=== PATIENT | male | born 1935 | race Caucasian/White ===

== ENCOUNTER 2017-12-03 07:57 | Day surgery (SDC) | payer OTHER ==
--- NOTE | 2017-11-27 12:18 | GHP ---
DATE OF ADMISSION: 12/03/2017 HISTORY OF PRESENT ILLNESS: The patient is an 82-year-old male with chronic kidney disease, who anti cipates needs for dialysis soon. He is followed by [facility]. Initially, he came to us opt ing for a peritoneal dialysis catheter. However, upon further discussion with his supervisor burling and joining, they have both decided to pursue hemodialysis, and so he is here to have an arteriovenous fistula created . Risks and options have been discussed, including, but not limited to, bleeding, infection, nerve i njury, clotting, failure to mature, need for revision, need for alternate access, steal syndrome and other problems, and he requests to proceed. PAST MEDICAL HISTORY: Includes chronic kidney disease secondary to hypertension, hypertension, gout, coronary artery disease, status post coronary stenting x3, upper GI bleed from gastric polyps, ulnar neuropathy, hyperlipidemia, history of prostate cancer, status post radiation proton therapy, herpes zoster, hemorrhoid problems with bleeding while on Plavix. Also, hyperparathyroidism, osteoporosis, and GERD. PAST SURGICAL HISTORY: Coronary stents, parathyroidectomy. MEDICATIONS: Include atenolol, Lipitor, Niaspan, aspirin, Flonase, vitamin C, fish oil, vitamin E, v itamin B12, Flomax, Cialis, CoQ10, calcium, ferrous sulfate, vitamin D, allopurinol, Lasix, Zemplar, Norvasc, atenolol, sodium bicarbonate, Tums. ALLERGIES: No known drug allergies. SOCIAL HISTORY: Denies alcohol, drug or tobacco use. REVIEW OF SYSTEMS: Includes some shortness of breath, swelling of ankles, intermittent diarrhea and nausea. PHYSICAL EXAMINATION: GENERAL: Exam reveals an 82-year-old male, alert and oriented x3, in no acute distress. HEENT: Normocephalic, atraumatic. CHEST: Clear to auscultation bilaterally. CARDIAC: Regular rate and rhythm. ABDOMEN: Soft, nontender. No rebound or guarding. EXTREMITIES: Warm an d dry, with palpable radial pulses. IMPRESSION: This is an 82-year-old male with renal failure, soon to be in need for dialysis. PLAN: Plan will be to proceed with a left upper extremity arteriovenous fistula creation. Again, shital colmenares initially opted for a PD cath, but upon further discussion with his supervisor burling and joining, has chosen he modialysis. Per my discussion with the patient, he has also discussed this with Dr. Degroot and now re quests to proceed. /[id number]/MODL
[2017-12-03] MEDS ORDERED: ceFAZolin 2 GM/DEXTROSE 100 ML IV ONE (08:05)
[2017-12-03] MEDS ORDERED: LR 1,000 ML IV ONE (08:06)
[2017-12-03] MEDS ORDERED: LIDOCAINE 1% 2 ML INJ ID PRN (08:06)
[2017-12-03] MEDS ORDERED: THROMBIN (BOVINE) 5,000 UNIT VIAL TP ONE (09:14)
[2017-12-03] MEDS ORDERED: THROMBIN (BOVINE) 20,000 UNIT SPRAY TP ONE (09:14)
[2017-12-03] MEDS ORDERED: PROTAMINE SULFATE 50 MG/5 ML VIAL IVP ONE ×2 (09:15)
[2017-12-03] MEDS ORDERED: BUPIVACAINE 0.5% 30 ML SDV ONE (09:15)
[2017-12-03] MEDS ORDERED: PROPOFOL/EMULSION 500 MG/50 ML BOTTLE IV ONE (09:36)
[2017-12-03] MEDS ORDERED: ONDANSETRON 4 MG/2 ML VIAL IVP PRN (09:37)
[2017-12-03] MEDS ORDERED: HYDROCODONE/APAP 5/325 TAB PO PRN (09:37)
[2017-12-03] MEDS ORDERED: fentaNYL 100 MCG/2 ML INJ IVP PRN (09:37)
[2017-12-03] MEDS ORDERED: NS 500 ML IV PRN (09:37)
[2017-12-03] MEDS ORDERED: ACETAMINOPHEN 500 MG TAB PO PRN (09:37)
[2017-12-03] MEDS ORDERED: LABETALOL HCL 5 MG/ML 20 ML MDV IVP PRN (09:37)
[2017-12-03] MEDS ORDERED: oxyCODONE IR 5 MG TAB PO PRN (09:37)
[2017-12-03] MEDS ORDERED: NALOXONE HCL 0.4 MG/ML INJ IVP PRN (09:37)
--- NOTE | 2017-12-03 09:37 | PDANEPAE ---
ANE History of Present Illness here for L AV fistula ANE Past Medical History - Cardiovascular History Hx Hypertension: Yes Hx Arrhythmias: No Hx Chest Pain: No Hx Coronary Artery / Peripheral Vascular Disease: Yes Hx CHF / Valvular Disease: No Hx Palpitations: No Cardiovascular History Comment: STENTS X3 LAST 2006 - Pulmonary History Hx COPD: No Hx Asthma/Reactive Airway Disease: No Hx Recent Upper Respiratory Infection: No Hx Oxygen in Use at Home: No Hx Sleep Apnea: No Sleep Apnea Screening Result - Last Documented: Positive - Neurologic History Hx Cerebrovascular Accident: No Hx Seizures: No Hx Dementia: No - Endocrine History Hx Diabetes: No - Renal History Hx Renal Disorders: Yes Renal History Comment: ESRD. 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 USE OF RX. PREV GI BLEED. HX OF POLYPS - Other Health History Other Health History: ITCHING. GOUT. ANEMIA. BRUISES EASILY. WEARS EYE GLASSES. OSTEOPOROSIS - Chronic Pain History Chronic Pain: Yes (JUNAID HIPS) - Surgical History Prior Surgeries: FLEX SIGMOID/HEMORRHOID BONDING. PARATHYROID. TONSILLECTOMY ANE Review of Systems Review of systems is: negative Review of Systems: - Exercise capacity Exercise capacity: >=4 METS METS (RN): 4 METS ANE Patient History - Allergies Allergies/Adverse Reactions: No Known Allergies Allergy (Verified 12/03/17 08:47) - Home Medications Home medications: home medication list seen and reviewed Home Medications: Allopurinol [Allopurinol 100 MG (*)] 100 mg PO DAILY 09/21/15 [Last Taken ] Aspirin [Aspirin 81mg (*)] 81 mg PO DAILY20 09/21/15 [Last Taken 11/30/17] Atorvastatin Calcium [Lipitor 20 mg (*)] 20 mg PO DAILY20 09/21/15 [Last Taken 12/02/17] Docusate Sodium [Colace 100 MG (*)] 100 mg PO PRN 09/21/15 [Last Taken 11/19/17] Herbals/Supplements -Info Only 1 ea PO DAILY 09/21/15 [Last Taken 11/29/17] Multivitamins [Multivitamin (*)] 1 each PO DAILY 09/21/15 [Last Taken 11/29/17] Niacin ER [Niaspan 500 mg (*)] 500 mg PO DAILY20 09/21/15 [Last Taken 12/02/17] Paricalcitol [Zemplar] 4 mcg PO ONCE 09/21/15 [Last Taken 12/02/17] amLODIPine BESYLATE [Norvasc 10 mg (*)] 10 mg PO HS 09/21/15 [Last Taken ] Furosemide DAILY 11/29/17 [Last Taken 12/02/17] Iron DAILY 11/29/17 [Last Taken 12/03/17] Sodium Bicarbonate DAILY 11/29/17 [Last Taken 12/03/17] Tamsulosin HCl [Flomax 0.4 MG (*)] 0.4 mg PO BID 11/29/17 [Last Taken 12/03/17] - NPO status NPO Status: no food or drink >8 hours NPO Since - Liquids (Date): 12/03/17 NPO Since - Liquids (Time): 05:45 NPO Since - Solids (Date): 12/02/17 NPO Since - Solids (Time): 20:00 - Smoking Hx Smoking Status: Never smoked - Family Anes Hx Family Hx Anesthesia Complications: SON HAD DIFFICULTY CARDIAC ARREST AT AGE 17 ANE Labs/Vital Signs - Labs Result Diagrams: 12/03/17 08:05 - Vital Signs Vital Signs: reviewed preoperatively; see RN documention for details Blood Pressure: 127/72 Heart Rate: 60 Respiratory Rate: 16 O2 Sat (%): 96 Height: 189.23 cm Weight: 96.162 kg ANE Physical Exam - Airway Neck exam: FROM Mallampati Score: Class 2 Mouth exam: normal dental/mouth exam - Pulmonary Pulmonary: no respiratory distress - Cardiovascular Cardiovascular: regular rate and rhythym - ASA Status ASA Status: III ANE Anesthesia Plan Anesthesia Plan: GA w LMA
[2017-12-03] MEDS ORDERED: fentaNYL 100 MCG/2 ML INJ ONE ×2 (09:38→10:08)
[2017-12-03] MEDS ORDERED: PHENYLEPHRINE HCL 100 MCG/ML SYR ONE (09:46)
[2017-12-03] MEDS ORDERED: ONDANSETRON 4 MG/2 ML VIAL ONE (10:05)
[2017-12-03] MEDS ORDERED: DEXAMETHASONE 4 MG/ML VIAL ONE (10:05)
--- NOTE | 2017-12-03 11:14 | POSTOPPROG ---
Post Op Note Date of Operation: 12/03/17 Surgeon: Alexandro Degroot Button Sewer Hand: Megan Mccord Anesthesiologist: Saul Omalley Anesthesia: GET(General Endotracheal) Pre-op Diagnosis: CRF Post-op Diagnosis: same Procedure: LUE radiocephalic AVF c ligation of collateral vein Findings: good thrill Inf/Abcess present in the surg proc area at time of surgery?: No EBL: Minimal Complications: none
[2017-12-03] MEDS ORDERED: HYDROCODONE/APAP 5/325 TAB ONE (12:07)
[2017-12-03 12:55] VITALS: BP 127/71
--- NOTE | 2017-12-03 16:08 | POSTANESTH ---
Post Anesthetic Evaluation Cardiovascular Status: Normal, Stable Respiratory Status: Normal, Stable Level of Consciousness/Mental Status: Can Participate in Eval Pain Control: Adequate, Prn Tx Ordered Nausea/Vomiting Control: Adequate, Prn Tx Ordered Complications Possibly Related to Anesthesia: None Noted
--- NOTE | 2017-12-30 05:52 | GOP ---
DATE OF OPERATION: 12/03/2017 SURGEON: Alexandro Degroot MD ANAESTHETIC TECHNICIAN: Megan Mccord PA-C ANESTHESIOLOGIST: Saul Omalley MD PREOPERATIVE DIAGNOSIS: Chronic renal failure. POSTOPERATIVE DIAGNOSIS: Chronic renal failure. PROCEDURE PERFORMED: 1. Left upper extremity ultrasound vein mapping. 2. Left upper extremity radiocephalic arteriovenous fistula creation with ligation of collateral vei ns. FINDINGS: The patient was found to have a good thrill and bruit in the AV fistula. DESCRIPTION OF PROCEDURE: The patient was taken to the operating room where he received a satisfacto ry general endotracheal anesthesia by Dr. Omalley. He was placed in the supine position with the left arm outstretched on an arm board, prepped and draped in the usual sterile fashion. Ultrasound was u sed to evaluate the veins, and it was felt that it was much safer and larger in the upper arm. A cur vilinear incision was made in the antecubital space. Dissection carried down through the subcutaneou s tissue, and the brachial artery was dissected free underneath the aponeurosis and encircled with ve ssel loops. The patient was systemically heparinized. The cephalic vein was mobilized in the antecu bital space and then dissected down into the upper forearm where it was ligated distally with 2-0 apryl k ties and it was transposed over to the brachial artery where an end-to-side anastomosis was made wi th 6-0 Prolene running suture, creating an 8 mm anastomosis. Flow was first established through the AV fistula then back down the hand. He maintained a good fistula flow and a good radial pulse. The wounds were then closed using 3-0 Vicryl for the subcutaneous tissue and 4-[address] itch for the skin. All layers were infiltrated with 0.5% Marcaine. The patient tolerated the proced ure well. There were no complications. Blood loss negligible. He was taken to the recovery room in good condition. /[id number]/MODL
== END 2017-12-03 12:57 | disposition home or self-care (01) ==
LOC: FSGY 07:57
PROVIDERS: ATTEND Surgery
PROC: 03180ZD Bypass Left Brachial Artery to Upper Arm Vein, Open Approach (ICD-10-PCS; principal; 2017-12-03 09:45)
DX: N18.6 End stage renal disease (principal); I12.0 Hypertensive chronic kidney disease with stage 5 chronic kidney disease or end stage renal disease; E78.5 Hyperlipidemia, unspecified; E21.3 Hyperparathyroidism, unspecified; M81.0 Age-related osteoporosis without current pathological fracture; K21.0 Gastro-esophageal reflux disease with esophagitis; Z85.46 Personal history of malignant neoplasm of prostate
CPT/HCPCS: J0690; J1100; J1644; J2370; J2405; J2704; J2720; J3010

== ENCOUNTER → 2018-01-27 | Outpatient (CLI) | payer OTHER | LOC: FIMAGING 09:42 | PROVIDERS: ATTEND Internal Medicine Nephrology | DX: I12.9 Hypertensive chronic kidney disease with stage 1 through stage 4 chronic kidney disease, or unspecified chronic kidney disease (principal); N18.4 Chronic kidney disease, stage 4 (severe); Z95.5 Presence of coronary angioplasty implant and graft | CPT/HCPCS: 86707-90; 87350-90; G0472 ==

== ENCOUNTER → 2018-03-12 | Day surgery (SDC) | payer OTHER ==
[~2018-03-12] MED LIST: IOPAMIDOL (ISOVUE-370) 150 ML BTL IV ONE
== END | disposition home or self-care (01) ==
LOC: FIMAGING 08:34
PROVIDERS: ATTEND Radiology Diagnostic Radiology
DX: T82.858A Stenosis of other vascular prosthetic devices, implants and grafts, initial encounter (principal); N18.6 End stage renal disease; I12.0 Hypertensive chronic kidney disease with stage 5 chronic kidney disease or end stage renal disease; Z99.2 Dependence on renal dialysis
CPT/HCPCS: 36902; 76937; C1769; C1894; C1725; J1644; Q9967

== ENCOUNTER 2018-03-14 07:52 | Inpatient (IN) | payer OTHER ==
--- NOTE | 2018-03-14 08:23 | EDPHY ---
H & P Time Seen by Provider: 03/14/18 08:18 HPI/ROS: CHIEF COMPLAINT: Abdominal pain HISTORY OF PRESENT ILLNESS: 83-year-old man who has Saturday and Saturday dialysis presents with abdominal pain since 3:30 a.m.. Says pain is 9/ 10, does not radiate, associated with some dry heaving but no diarrhea. No previous abdominal surgeries. It is located in the epigastric region and all above his umbilicus. 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 Denies chest pain or shortness of breath or diarrhea. No recent injury or trauma. No fever or chills. No urinary symptoms. REVIEW OF SYSTEMS: Eye: no change in vision ENT: no sore throat Cardiac: no chest pain or syncope Pulmonary: no cough or SOB Abdomen: HPI Musculoskeletal: no back pain Skin: no rash Neuro: no headache Constitutional: no fever : no urinary symptoms A comprehensive 10 point review of systems is otherwise negative aside from elements mentioned in the history of present illness. PAST MEDICAL HISTORY: Dialysis with some residual renal function still urinates , hypertension, coronary disease with 2 stents, hypercholesterolemia, prostate cancer Social history: Missed his dialysis yesterday because he was taking his to a neurosurgery appointment. General Appearance: Alert and conversant, cooperative. Moderately uncomfortable. Eyes: No scleral icterus. ENT, Mouth: Normal mucous membranes. Respiratory: Normal respiratory effort, breath sounds equal, lungs are clear to auscultation. Cardiovascular: Regular rate and rhythm. Gastrointestinal: Epigastric abdominal tenderness. No rebound or guarding. No pulsatile masses. Neurological: Alert, face symmetric, normal motor and sensory in extremities. Skin: Warm and dry, no rashes. Musculoskeletal: No peripheral edema. Psychiatric: Not agitated. Emergency Department course/MDM: CT abdomen and pelvis without IV contrast because he still has some renal function left. Discussed with the patient and consented Fentanyl 100 and Zofran 4. 908: negative abdomen pelvis CT per [place]. 914: Results discussed the patient and his family. Admission discussed and consented for further evaluation of severe abdominal pain. Discussed with Giselle Mayfield. Smoking Status: Never smoked Constitutional: Initial Vital Signs Temperature (C) 36.5 C 03/14/18 07:55 Heart Rate 80 03/14/18 07:55 Respiratory Rate 18 03/14/18 07:55 Blood Pressure 177/107 H 03/14/18 07:55 O2 Sat (%) 99 03/14/18 07:55 O2 Delivery Mode Room Air Allergies/Adverse Reactions: adhesive Allergy (Mild, Verified 03/07/18 11:28) Rash Home Medications: Medication Instructions Recorded Allopurinol [Allopurinol 100 MG 100 mg PO DAILY 09/21/15 (*)] Aspirin [Aspirin 81mg (*)] 81 mg PO HS 09/21/15 Atorvastatin Calcium [Lipitor 20 20 mg PO HS 09/21/15 mg (*)] Herbals/Supplements -Info Only 1 ea PO DAILY 09/21/15 Multivitamins [Multivitamin (*)] 1 each PO DAILY 09/21/15 Niacin ER [Niaspan 500 mg (*)] 500 mg PO HS 09/21/15 Paricalcitol [Zemplar] 4 mcg PO MOTH@09/21/15 Ferrous Sulfate [Ferrous Sulf 325 325 mg PO DAILY 11/29/17 MG (*)] Furosemide [Lasix 40 MG (*)] 40 mg PO DAILY16 11/29/17 Sodium Bicarbonate [Na Bicarb 650 1,300 mg PO DAILY 11/29/17 MG (RX)] Tamsulosin HCl [Flomax 0.4 MG (*)] 0.4 mg PO BID 11/29/17 Ascorbic Acid [Vitamin C 500 mg 500 mg PO DAILY 03/14/18 (*)] Calcium Carbonate [Tums 500MG (*)] 1,000 mg PO DAILY18 03/14/18 Calcium Carbonate [Tums 500MG (*)] 500 mg PO BID@,03/14/18 Cholecalciferol Vit D3 [Vitamin D3 1,000 units PO DAILY 03/14/18 (*)] Fluticasone Nasal [Flonase Nasal 1 sprays NASAL BID 03/14/18 [place] (RX)] Ondansetron Odt [Zofran Odt 4 mg 4 mg PO BID PRN 03/14/18 (*)] Sodium Bicarbonate [Na Bicarb 650 1,950 mg PO HS 03/14/18 MG (RX)] Vitamin B Complex [Vitamin B 1 each PO DAILY 03/14/18 Complex (OTC)] Medical Decision Making - Diagnostics EKG Interpretation: 12-lead EKG interpreted by me; official reading is in computer system. My interpretation is sinus rhythm rate 68, left axis, no acute ischemic changes, QT 461. Imaging Results: Imaging Impressions Abdomen/Pelvis CT 03/14/18 08:32 Impression: 1. Subtle pericholecystic stranding. Otherwise, no explanation for epigastric pain. 2. Fatty replaced pancreas. No evidence of acute pancreatitis. 3. No evidence of duodenal ulcer or perforation. 4. Constipation and diverticulosis of the descending sigmoid colon. Findings discussed with Emergency Department physician, Charito Ríos, on 2018 at 9:14 a.m. Attention: This CT examination is specifically designed to evaluate patients who are clinically suspected of having acute obstructive uropathy. This examination does not use radiographic contrast, and as such, provides only a limited evaluation of the abdomen, pelvis and retroperitoneum. If there is further clinical suspicion for pathological conditions other than obstructive uropathy, a complete CT evaluation of the abdomen and pelvis utilizing intravenous, oral, and rectal contrast should be considered. Abdomen Ultrasound 03/14/18 09:09 Impression: 1. Suboptimal assessment of the pancreas and midabdominal aorta secondary to overlying bowel gas. 2. Questionable mild anterior gallbladder wall thickening, with no evidence of cholelithiasis, pericholecystic fluid, or bile duct dilatation. If there is further clinical concern, a nuclear medicine hepatobiliary scan could be considered. 3. There are a couple of small benign right renal cortical cysts, with some mild right renal cortical thinning. 4. Mild hepatic steatosis. Findings were discussed with CHARITO RÍOS MD at 11:12, on 03/14/2018. Imaging: Discussed imaging studies w/ call center assistant Radiologist Differential Diagnosis: Differential considered including but not limited to gallstones, pancreatitis, intestinal perforation, aortic aneurysm, acute coronary syndrome Consult/Admit Bed Type: [place] [id number] - Data Points Laboratory Results: Laboratory Results 03/14/18 08:15 03/14/18 08:15 03/14/18 03/14/18 03/14/18 08:29 08:15 08:15 WBC 7.50 10^3/uL 10^3/uL (3.80-9.50) RBC 3.26 10^6/uL L 10^6/uL (4.40-6.38) Hgb 10.7 g/dL L g/dL (13.7-17.5) POC Hgb 11.2 gm/dL L gm/dL (13.7-17.5) Hct 32.6 % L % (40.0-51.0) POC Hct 33 % L % (40-51) MCV 100.0 fL H fL (81.5-99.8) MCH 32.8 pg pg (27.9-34.1) MCHC 32.8 g/dL g/dL (32.4-36.7) RDW 14.4 % % (11.5-15.2) Plt Count 158 10^3/uL 10^3/uL (150-400) MPV 9.1 fL fL (8.7-11.7) Neut % (Auto) 82.1 % H % (39.3-74.2) Lymph % (Auto) 9.6 % L % (15.0-45.0) [place] % (Auto) 6.3 % % (4.5-13.0) Eos % (Auto) 0.7 % % (0.6-7.6) Baso % (Auto) 0.5 % % (0.3-1.7) Nucleat RBC Rel Count 0.0 % % (0.0-0.2) Absolute Neuts (auto) 6.16 10^3/uL 10^3/uL (1.70-6.50) Absolute Lymphs (auto) 0.72 10^3/uL L 10^3/uL (1.00-3.00) Absolute Monos (auto) 0.47 10^3/uL 10^3/uL (0.30-0.80) Absolute Eos (auto) 0.05 10^3/uL 10^3/uL (0.03-0.40) Absolute Basos (auto) 0.04 10^3/uL 10^3/uL (0.02-0.10) Absolute Nucleated RBC 0.00 10^3/uL 10^3/uL (0-0.01) Immature Gran % 0.8 % % (0.0-1.1) Immature Gran # 0.06 10^3/uL 10^3/uL (0.00-0.10) POC Sodium 140 mEq/L mEq/L (135-145) Sodium 139 mEq/L mEq/L (135-145) POC Potassium 3.9 mEq/L mEq/L (3.3-5.0) Potassium 4.2 mEq/L mEq/L (3.5-5.2) POC Chloride 104 mEq/L mEq/L (97-110) Chloride 105 mEq/L mEq/L (97-110) Carbon Dioxide 18 mEq/l L mEq/l (22-31) Anion Gap 16 mEq/L H mEq/L (6-14) POC BUN 33 mg/dL H mg/dL (7-23) BUN 39 mg/dL H mg/dL (7-23) Creatinine 6.4 mg/dL H mg/dL (0.7-1.3) POC Creatinine 7.4 mg/dL H mg/dL (0.7-1.3) Estimated GFR 8 Glucose 138 mg/dL H mg/dL (70-100) POC Glucose 144 mg/dL H mg/dL (70-100) Calcium 9.6 mg/dL mg/dL (8.5-10.4) Total Bilirubin 0.5 mg/dL mg/dL (0.1-1.4) Conjugated Bilirubin 0.4 mg/dL mg/dL (0.0-0.5) Unconjugated Bilirubin 0.1 mg/dL mg/dL (0.0-1.1) AST 25 IU/L IU/L (17-59) ALT 33 IU/L IU/L (21-72) Alkaline Phosphatase 70 IU/L IU/L (38-126) Total Protein 6.6 g/dL g/dL (6.3-8.2) Albumin 4.3 g/dL g/dL (3.5-5.0) Lipase 235 IU/L IU/L (23-300) Medications Given: Discontinued Medications Fentanyl (Sublimaze) 100 mcg IVP EDNOW ONE Stop: 03/14/18 08:33 Last Admin: 03/14/18 08:42 Dose: 100 mcg Hydromorphone HCl (Dilaudid) 1 mg IVP EDNOW ONE Stop: 03/14/18 09:48 Last Admin: 03/14/18 09:49 Dose: 1 mg Ondansetron HCl (Zofran) 4 mg IVP EDNOW ONE Stop: 03/14/18 08:33 Last Admin: 03/14/18 08:42 Dose: 4 mg Point of Care Test Results: Chemistry 03/14/18 08:29 POC Sodium 140 mEq/L mEq/L (135-145) POC Potassium 3.9 mEq/L mEq/L (3.3-5.0) POC Chloride 104 mEq/L mEq/L (97-110) POC BUN 33 mg/dL H mg/dL (7-23) POC Creatinine 7.4 mg/dL H mg/dL (0.7-1.3) POC Glucose 144 mg/dL H mg/dL (70-100) ISTAT H&H 03/14/18 08:29 POC Hgb 11.2 gm/dL L gm/dL (13.7-17.5) POC Hct 33 % L % (40-51) Departure - Departure Disposition: [facility] Inpatient Acute Clinical Impression: Abdominal pain Qualifiers: Abdominal location: epigastric Qualified Code(s): R10.13 - Epigastric pain Condition: Good
[2018-03-14] MEDS ORDERED: fentaNYL 100 MCG/2 ML INJ IVP ONE (08:32)
[2018-03-14] MEDS ORDERED: ONDANSETRON 4 MG/2 ML VIAL IVP ONE (08:32)
[2018-03-14 08:38] LABS: PLATELET COUNT 158 10^3/uL (150-400)
--- NOTE | 2018-03-14 08:40 | CPEKG ---
Test Reason : OPEN Blood Pressure : / mmHG Vent. Rate : 068 BPM Atrial Rate : 068 BPM P-R Int : 209 ms QRS Dur : 104 ms QT Int : 461 ms P-R-T Axes : 000 -19 038 degrees QTc Int : 491 ms Sinus rhythm Borderline left axis deviation Minimal ST elevation, inferior leads Borderline prolonged QT interval Confirmed by Charito Ríos ([id number]) on 03/14/2018 8:39:09 AM Referred By: CHARITO RÍOS Confirmed By:Charito Ríos
[2018-03-14] MEDS ORDERED: ONDANSETRON 4 MG/2 ML VIAL IVP PRN (09:22)
[2018-03-14] MEDS ORDERED: ONDANSETRON DISINTEGRATING 4 MG TAB PO PRN (09:22)
[2018-03-14] MEDS ORDERED: HYDROmorphONE/DILAUDID 1 MG/ML INJ IVP ONE (09:47)
[2018-03-14] MEDS ORDERED: HYDROmorphONE/DILAUDID 1 MG/ML INJ ONE (09:47)
[2018-03-14] MEDS ORDERED: BISACODYL 10 MG SUPP PR PRN (12:31)
[2018-03-14] MEDS ORDERED: LACTULOSE 20 GM/30 ML UDCUP PO PRN (12:31)
[2018-03-14] MEDS ORDERED: MAGNESIUM HYDROXIDE 30 ML UDCUP PO PRN (12:31)
[2018-03-14] MEDS ORDERED: POLYETHYLENE GLYCOL 3350 17 GM PKT PO PRN (12:31)
[2018-03-14] MEDS ORDERED: HYOSCYAMINE SULFATE 0.125 MG TAB PO ONE (13:33)
[2018-03-14] MEDS ORDERED: LIDOCAINE 2% VISCOUS 15 ML UDCUP PO ONE (13:33)
[2018-03-14] MEDS ORDERED: MAG HYDROX/AL HYDROX/SIMETH 30 ML UDCUP PO ONE (13:33)
[2018-03-14] MEDS: HEPARIN 5,000 UNIT/0.5 ML INJ SC SCH ×2 (14:25→21:55)
--- NOTE | 2018-03-14 14:29 | GHP ---
DATE OF ADMISSION: 03/14/2018 CHIEF COMPLAINT: Abdominal pain. PRIMARY HIGH SCHOOL LIBRARIAN,: Xiomy Hearn MD. HISTORY OF PRESENT ILLNESS: A pleasant 83-year-old male with end-stage renal disease started on dialysis January 2018, CAD status post three stents to RCA, and hypertension presents with acute onset of abdominal pain this morning. He awoke at 3:30 with crampy periumbilical pain 10/28. He had two formed stools this morning. Does have intermittent diarrhea every few days. He had nonbloody diarrhea, three episodes two days ago, which has been occurring for months. He initially attributed it to Keflex back in November, but these symptoms have persisted after completion of those. Yesterday at noon he ate at [employer], had a chicken salad and a small chili. He had turkey sausage and potato salad prepared by his last night. Denies fevers, chills, or sweats. No nausea, vomiting. No myalgias. No cough. Still makes urine but no dysuria or frequency. No chest pain. Has shortness of breath with exertion if very strenuous activity. This is not new. REVIEW OF SYSTEMS: I completed a 10-point review of systems which was negative except as noted in HPI. PAST MEDICAL HISTORY: 1. End-stage renal disease, on dialysis. 2. Hypertension. 3. Gout. 4. CAD with three stents to the RCA. 5. History of upper GI bleed secondary to polyps. 6. Ulnar neuropathy. 7. Hyperlipidemia. 8. Prostate cancer. 9. Hemorrhoids. 10. Hyperparathyroidism. 11. Osteoporosis. 12. GERD. PAST SURGICAL HISTORY: Parathyroid, left AV fistula 2018, tonsillectomy. SOCIAL HISTORY: He lives in the area with his of 57 years. 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 No alcohol, tobacco, or illicits. FAMILY HISTORY: Dad of complication of a hip surgery with bacteremia. Mother, diabetes. HOME MEDICATIONS: Zemplar 4 mcg p.o. Saturday, ; Zofran as needed; Flonase; aspirin 81 mg daily; allopurinol 100 mg daily; vitamin B; Lasix 40 mg daily; atorvastatin 20 mg at bedtime; ascorbic acid 500 mg daily; calcium carbonate; sodium bicarbonate; niacin; multivitamin; herbal supplement; ferrous sulfate 325 daily; tamsulosin 0.4 mg twice daily. ALLERGIES: Adhesive. PHYSICAL EXAMINATION: VITAL SIGNS: Temperature 36.8 blood pressure 132/70, heart rate in the 80s, respirations 16, 97% on room air. GENERAL: He is well appearing, no acute distress, lying in bed. HEENT: PERRLA. Moist mucous membranes. CV: Regular rate and rhythm. No lower extremity edema. LUNGS: Clear. No wheezes or crackles. ABDOMEN: Obese, soft, no tenderness. Positive bowel sounds. : No Ambriz. No suprapubic or CVA tenderness. MUSCULOSKELETAL: 5/5. Moving all 4 extremities. NEURO: 2 through 12 intact. PSYCH: Alert and oriented x3. LABS: 1. WBC 7, hemoglobin 10, hematocrit 32, platelets 158. Sodium 140, potassium _ .9, chloride 104, BUN 39, creatinine 7.9, glucose 144, total bilirubin 0.4, conjugated 0.4, AST 25, ALT 33, albumin 4.3, lipase 235. 2. EKG is personally reviewed by me. Normal sinus rhythm, LVH. 3. Abdominal ultrasound: Suboptimal assessment of the pancreas and mid abdominal aorta secondary to overlying bowel gas. No evidence of cholelithiasis. Small benign right renal cortical cyst. Mild hepatic steatosis. 4. Abdominal pelvic CT: Subtle pericholecystic stranding. Fatty replaced pancreas. No evidence of duodenal ulcer or perforation. Constipation and diverticulosis of descending sigmoid colon. ASSESSMENT/PLAN: 1. Acute abdominal pain: Initial evaluation has been unremarkable with a reassuring abdominal ultrasound and CT. No evidence of perforation or infection. Afebrile. There is some constipation. Query if he has irritable bowel syndrome given intermittent diarrhea at home. We will trial a GI cocktail. If not effective, can try Bentyl to see if improved. We will also check a troponin as an anginal equivalent with history of coronary artery disease.It may be secondary to food he ate last night. Also, could be uremia, HD per renal. 2. End stage renal disease, on dialysis: Evaluated by Dr. May. Plan for dialysis today. He missed on . 3. Hypertension: Resume home medications. 4. Gout: Renally dosed allopurinol. 5. Coronary artery disease: No overt chest pain. Shortness of breath is unchanged. We will check a troponin. EKG is reassuring. On aspirin. 6. Hyperlipidemia: Niacin. 7. History of prostate cancer: Status post proton therapy. Flomax. 8. Diet: Renal. 9. Deep venous thrombosis prophylaxis: Subcu heparin. DISPOSITION: Patient warrants observation admission given abdominal pain warranting pain control as well as dialysis. /[id number]/MODL MTDD
[2018-03-14] MEDS ORDERED: HYDROmorphONE/DILAUDID 1 MG/ML INJ IVP PRN (15:28)
[2018-03-14] MEDS ORDERED: CALCIUM CARBONATE 500 MG CHEWABLE TAB PO SCH (18:00)
[2018-03-14] MEDS: FUROSEMIDE 40 MG TAB PO SCH (18:15)
[2018-03-14] MEDS: ALLOPURINOL 100 MG TAB PO SCH (18:15)
[2018-03-14] MEDS: DICYCLOMINE 10 MG CAP PO PRN (18:36)
[2018-03-14] MEDS ORDERED: ASPIRIN 81 MG CHEWABLE TAB PO SCH (21:00)
[2018-03-14] MEDS ORDERED: ATORVASTATIN CALCIUM 20 MG TAB PO SCH (21:00)
[2018-03-14] MEDS ORDERED: SODIUM BICARBONATE 650 MG TAB PO SCH (21:00)
[2018-03-14] MEDS ORDERED: NIACIN ER 500 MG TAB.ER PO SCH (21:00)
[2018-03-14] MEDS: TAMSULOSIN HCL 0.4 MG CAP PO SCH (21:52)
[2018-03-14] MEDS: FLUTICASONE NASAL 120 SPRAYS/16 GM MDI EACHNARE SCH (21:53)
[2018-03-14] MEDS: SENNOSIDES/DOCUSATE SODIUM TAB PO SCH (21:53)
[2018-03-14] MEDS: ACETAMINOPHEN 325 MG TAB PO PRN (23:57)
[2018-03-15] MEDS: HEPARIN 5,000 UNIT/0.5 ML INJ SC SCH ×2 (05:33→15:23)
[2018-03-15] MEDS: ALLOPURINOL 100 MG TAB PO SCH (08:21)
[2018-03-15] MEDS: TAMSULOSIN HCL 0.4 MG CAP PO SCH (08:21)
[2018-03-15] MEDS: FLUTICASONE NASAL 120 SPRAYS/16 GM MDI EACHNARE SCH (08:23)
[2018-03-15] MEDS: SENNOSIDES/DOCUSATE SODIUM TAB PO SCH (08:24)
[2018-03-15] MEDS ORDERED: ASCORBIC ACID 500 MG TAB PO SCH (09:00)
[2018-03-15] MEDS ORDERED: CALCIUM CARBONATE 500 MG CHEWABLE TAB PO SCH ×3 (09:00→12:00)
[2018-03-15] MEDS ORDERED: FERROUS SULFATE 325 MG TAB PO SCH (09:00)
[2018-03-15] MEDS ORDERED: MULTIVITAMINS 1 EACH TAB PO SCH (09:00)
[2018-03-15] MEDS ORDERED: CHOLECALCIFEROL VIT D3 1,000 UNITS TAB PO SCH (09:00)
[2018-03-15] MEDS ORDERED: VITAMIN B COMPLEX 1 EA CAP/TAB PO SCH (09:00)
[2018-03-15] MEDS ORDERED: Herbals/Supplements -Info Only PO SCH (09:00)
[2018-03-15] MEDS ORDERED: SODIUM BICARBONATE 650 MG TAB PO SCH (09:00)
[2018-03-15] MEDS: ACETAMINOPHEN 325 MG TAB PO PRN (10:35)
--- NOTE | 2018-03-15 11:04 | ASMTCMCOM ---
CM Note CM Note Notes: Pt was admitted with abdominal pain and some episodes of diarrhea. He has a hx of ESRD and has been on dialysis since 02/04. Dialysis schedule is . He also has a hx of CAD with stenting, HTN, gout and prostate CA. 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 Spoke with pt's RN - the current plan is a trial of GI cocktail and Bentyl. He will have dialysis today and there is the possibility he will d/c home today. At baseline he is independent. D/C plan: anticipate home independent Date Signed: 03/15/2018 11:03 AM Electronically Signed By:YUE Lovett
--- NOTE | 2018-03-15 11:34 | SOAPPROG ---
SOAP Progress Note Assessment/Plan: Assessment: ESRD, HD went well yesterday HD today Abd pain better, wants to go home recent angioplasty of AVF Plan: HD today OK for dismissal when OK with others Follow up on outpatient HD usual day and time 03/15/18 11:31 Subjective: up to chair no cp sob nausea or vomiting abd pain down from "8" yesterday now "1-2" slept OK tolerating PO spirits good Objective: Vital Signs Temp Pulse Resp BP Pulse Ox 36.6 C 85 16 136/69 H 93 03/15/18 08:15 03/15/18 08:15 03/15/18 08:15 03/15/18 08:15 03/15/18 08:15 Laboratory Results 03/15/18 07:56 03/14/18 03/15/18 03/16/18 05:59 05:59 05:59 Intake Total 510 Balance 510 Physical Exam - Physical Exam General Appearance: alert Neck: normal inspection Respiratory: No rhonchi, No wheezing Cardiac/Chest: regular rate, rhythm, edema, systolic murmur, No friction rub Abdomen: normal bowel sounds, non-tender, soft Skin: warm/dry Extremities: pedal edema Neuro/Psych: alert, normal mood/affect, oriented x 3 ICD10 Worksheet Patient Problems: Problems Problem Status Onset Abdominal pain Acute Rectal bleeding Acute
--- NOTE | 2018-03-15 11:35 | ASMTLACE ---
LACE Length of stay for Answers: 1 day current admission Acuity / Level of Answers: Yes Care: Did the patient have an inpatient admission? Comorbidities - select Answers: Any tumor (including all that apply lymphoma or leukemia) Coronary Artery Disease Moderate or severe liver or renal disease Other Notes: gout, HTN # of Emergency department Answers: 1-2 visits in the last 6 months Score: 14 Date Signed: 03/15/2018 11:35 AM Electronically Signed By:Indy Miner RN
--- NOTE | 2018-03-15 11:37 | ASMTDCNOTE ---
Case Management Discharge Discharge Order Complete? Answers: Yes Patient to Obtain Answers: Independently Medications Transportation Arranged Answers: Family/Friends Family Notified Answers: Yes Discharge Comments Notes: Medically cleared for dc. No needs. Date Signed: 03/15/2018 11:36 AM Electronically Signed By:Indy Miner RN
[2018-03-15 16:19] VITALS: BP 143/78
[2018-03-15] MEDS: DICYCLOMINE 10 MG CAP PO PRN (16:23)
[2018-03-15] MEDS ORDERED: LIDOCAINE 1% *Not for Epidural 20 ML MDV IV ONE (16:34)
[2018-03-15] MEDS: FUROSEMIDE 40 MG TAB PO SCH (17:34)
--- NOTE | 2018-03-15 20:21 | GDS ---
DISCHARGE DIAGNOSES: 1. Acute abdominal pain. 2. End stage renal disease, on dialysis. 3. Hypertension. 4. Gout. 5. Coronary artery disease with 3 stents to the right coronary artery. 6. History of upper gastrointestinal bleed. 7. Ulnar neuropathy. 8. Hyperlipidemia. 9. Prostate cancer. 10. Hemorrhoids. 11. Hyperparathyroidism. 12. Osteoporosis. 13. Gastroesophageal reflux disease. HISTORY OF PRESENT ILLNESS: A pleasant 83-year-old male with an end-stage renal disease on dialysis, CAD, presents with acute onset of abdominal pain that awoke him at 3:30 a.m. 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 He did have formed stools. Endorses intermittent diarrhea several episodes e very few days, but nonbloody. He had eaten a chicken salad and small chili at [employer] the night befo re. HOSPITAL COURSE BY PROBLEM: 1. Acute abdominal pain: Evaluation is unremarkable. He had a CT that demonstrated constipation an d diverticulosis in the descending sigmoid colon, which is not correlating to the location of complai nts. His LFTs and lipase were all normal. No evidence of gallstones. May have been secondary to fo od poisoning versus IBS with history of diarrhea. I recommended Metamucil at home and if not improve ment in bowel symptoms to follow up with Gastroenterology. 2. Problem end-stage renal disease: Received dialysis yesterday and will repeat today. Follow up w james Gore. 3. Gout: Allopurinol renally dosed. 4. CAD: Statin, aspirin. 5. Hyperlipidemia: Niacin. 6. BPH: Tamsulosin. DISPOSITION: Patient is stable for discharge home. NEW MEDICATIONS: Recommend Metamucil. FOLLOWUP: 1. PCP. 2. Dr. Gore. 3. Referral for Gastroenterology if abdominal symptoms persist. PHYSICAL EXAMINATION: Today: VITAL SIGNS: Temperature 36.6, blood pressure 136/69, heart rate in t he 80s, respirations 16, 93% on room air. GENERAL: He is well appearing, sitting in bed, in no acut e distress. HEENT: PERRLA. Moist mucous membranes. CV: Regular rate. CHEST: Lungs are clear. ABDOMEN: Soft, nondistended, nontender. Positive bowel sounds. : No Ambriz. MUSCULOSKELETAL: M oving all 4 extremities. NEURO: 2 through 12 intact. PSYCH: Alert and oriented x3. TIME: Time spent on discharge greater than 30 minutes coordinating discharge and followup plan with patient. /[id number]/MODL
--- NOTE | 2018-03-16 10:37 | PDMN ---
Medical Necessity Medical necessity: MCG M05 abd pain, undiagnosed, A-1 day: 83 yo w/ acute abd pain w/ diff dx food poisoning vs. IBS. Imaging shows constipation and diverticulosis in descending sigmoid colon. Neph consult, pain management w/ IV opioids. Pt tachy at times >100. Hx ESRD on HD, HTN, CAD w/ 3 stents to RCA , UGIB, HLD, prostate CA, GERD, osteoporosis, hyperparathyroidism, ulnar neuropathy, gout
[2018-03-17 02:27] LABS: HEPATITIS B CORE AB IGM NEGATIVE (NEGATIVE); HEPATITIS B SURFACE ANTIGEN NEGATIVE (NEGATIVE)
[2018-03-17] MEDS ORDERED: PARICALCITOL 4 MCG PO SCH (21:00)
== END 2018-03-15 16:35 | disposition home or self-care (01) | DRG 391 ==
LOC: F1N 13:18
PROVIDERS: ADMIT Internal Medicine; ATTEND Internal Medicine
PROC: 5A1D70Z Performance of Urinary Filtration, Intermittent, Less than 6 Hours Per Day (ICD-10-PCS; principal; 2018-03-14)
DX: R10.33 Periumbilical pain (principal); I12.0 Hypertensive chronic kidney disease with stage 5 chronic kidney disease or end stage renal disease; N18.6 End stage renal disease; K59.00 Constipation, unspecified; K57.30 Diverticulosis of large intestine without perforation or abscess without bleeding; M10.9 Gout, unspecified; I25.10 Atherosclerotic heart disease of native coronary artery without angina pectoris; Z95.5 Presence of coronary angioplasty implant and graft; G56.20 Lesion of ulnar nerve, unspecified upper limb; E78.5 Hyperlipidemia, unspecified; Z85.46 Personal history of malignant neoplasm of prostate; K64.9 Unspecified hemorrhoids; E21.3 Hyperparathyroidism, unspecified; M81.0 Age-related osteoporosis without current pathological fracture; K21.9 Gastro-esophageal reflux disease without esophagitis; Z99.2 Dependence on renal dialysis; N40.0 Benign prostatic hyperplasia without lower urinary tract symptoms; Z79.82 Long term (current) use of aspirin
CPT/HCPCS: 82435-PO; 82565-PO; 82947-PO; 84132-PO; 84295-PO; 84520-PO; 85014-ER; 86705-90; 96374; C1725; C1769; C1894; J1170; J1644; J2405; J3010; Q9967

== ENCOUNTER 2018-03-18 16:01 | Inpatient (IN) | payer OTHER ==
[2018-03-18] MEDS ORDERED: NS 1,000 ML IV ONE (17:17)
[2018-03-18] MEDS ORDERED: ONDANSETRON 4 MG/2 ML VIAL IVP ONE (17:17)
[2018-03-18] MEDS ORDERED: fentaNYL 100 MCG/2 ML INJ IVP ONE (17:17)
--- NOTE | 2018-03-18 17:21 | EDPHY ---
H & P Time Seen by Provider: 03/18/18 17:10 HPI/ROS: CHIEF COMPLAINT: Fever and abdominal pain HISTORY OF PRESENT ILLNESS: Patient was admitted last week for similar symptoms and was discharged on 15 March. He presents with 24 hr of worsening abdominal pain in the same right upper quadrant location associated with fevers up to 100.9 last night. Right now pain is severe. It is not better worse with anything. Not associated with vomiting, he did have some diarrhea earlier but that is getting better. No headache or neck stiffness or neck pain or sore throat or cough or trouble breathing. No skin rashes. He did go to dialysis today. REVIEW OF SYSTEMS: Eye: no change in vision ENT: no sore throat Cardiac: no chest pain or syncope Pulmonary: no cough or SOB Abdomen: HPI Musculoskeletal: no back pain Skin: no rash Neuro: no headache Constitutional: HPI : no urinary symptoms A comprehensive 10 point review of systems is otherwise negative aside from elements mentioned in the history of present illness. PAST MEDICAL HISTORY: Includes renal disease on dialysis but does make urine, hypertension, gout, coronary artery disease, upper GI bleed. Prostate cancer, hyperparathyroid, GERD Social history: Nonsmoker General Appearance: Alert and conversant, cooperative. Eyes: No scleral icterus. ENT, Mouth: Slightly dry mucous membranes. Respiratory: Normal respiratory effort, breath sounds equal, lungs are clear to auscultation. Cardiovascular: Regular rate and rhythm. Tachycardic. Thrill present in his left wrist fistula. Gastrointestinal: Right upper quadrant abdominal tenderness. Neurological: Alert, face symmetric, normal motor and sensory in extremities. Skin: Warm and dry, no rashes. Musculoskeletal: No meningeal signs, neck supple. Psychiatric: Not agitated. Emergency Department course/MDM: Temperature 38.2 degrees when I take it. He is noted to be tachycardic at 123, systolic blood pressure 139. IV fluid bolus, EKG and labs to include LFT and lipase, repeat CT abdomen and pelvis. Blood cultures and hospital admission. 1756: CT per [place] episodes inflammation fluid around the gallbladder and around the duodenum, otherwise unchanged from last week. He did have an ultrasound last week if his gallbladder that showed no stones. Dr. Degroot was the surgeon for his dialysis access, will consult surgery and admit to hospitalist. 1757: Kwame Degroot will consult, empiric treatment for possible acalculous cholecystitis with 1 g IV meropenem. Consider HIDA scan, admission hospitalist service. Smoking Status: Never smoked Constitutional: Initial Vital Signs Temperature (C) 37.5 C 03/18/18 16:36 Heart Rate 123 H 03/18/18 16:36 Respiratory Rate 20 03/18/18 16:36 Blood Pressure 139/71 H 03/18/18 16:36 O2 Sat (%) 92 03/18/18 16:36 O2 Delivery Mode Room Air Allergies/Adverse Reactions: adhesive Allergy (Mild, Verified 03/18/18 16:36) Rash Home Medications: Medication Instructions Recorded Allopurinol [Allopurinol 100 MG 100 mg PO DAILY 09/21/15 (*)] Aspirin [Aspirin 81mg (*)] 81 mg PO HS 09/21/15 Atorvastatin Calcium [Lipitor 20 20 mg PO HS 09/21/15 mg (*)] Herbals/Supplements -Info Only 1 ea PO DAILY 09/21/15 Multivitamins [Multivitamin (*)] 1 each PO HS 09/21/15 Niacin ER [Niaspan 500 mg (*)] 500 mg PO HS 09/21/15 Paricalcitol [Zemplar] 4 mcg PO MOTH@21 09/21/15 Ferrous Sulfate [Ferrous Sulf 325 325 mg PO DAILY 11/29/17 MG (*)] Sodium Bicarbonate [Na Bicarb] 1,300 mg PO DAILY 11/29/17 Tamsulosin HCl [Flomax 0.4 MG (*)] 0.4 mg PO BID 11/29/17 Ascorbic Acid [Vitamin C 500 mg 500 mg PO HS 03/14/18 (*)] Calcium Carbonate [Tums 500MG (*)] 1,000 mg PO 03/14/18 Calcium Carbonate [Tums 500MG (*)] 500 mg PO DAILY@03/14/18 Cholecalciferol Vit D3 [Vitamin D3 1,000 units PO HS 03/14/18 (*)] Fluticasone Nasal [Flonase Nasal 1 sprays [place] BID 03/14/18 [place]] Ondansetron Odt [Zofran Odt 4 mg 4 mg PO BID PRN 03/14/18 (*)] Sodium Bicarbonate [Na Bicarb] 1,950 mg PO HS 03/14/18 Vitamin B Complex [Vitamin B 1 each PO HS 03/14/18 Complex (OTC)] Furosemide [Lasix 20 MG (*)] 40 mg PO DAILY16 03/18/18 Medical Decision Making - Diagnostics EKG Interpretation: 12-lead EKG interpreted by me; official reading is in computer system. My interpretation is sinus tachycardia 113 with inferior Q-waves and P are 215. No acute ischemic changes. Imaging Results: Imaging Impressions Abdomen/Pelvis CT 03/18/18 17:18 Impression: 1. Inflammatory changes surrounding the gallbladder and second portion of the duodenum suggesting acalculous acute cholecystitis versus less likely duodenitis. 2. Consider nuclear medicine HIDA scan. 3. No urinary tract obstruction. 4. Atherosclerotic aorta and iliac arteries, without aneurysm. 5. Patchy right lower lobe pneumonitis or atelectasis. Findings and recommendations discussed with Emergency Department physician, Salbador Finn M.D., at 1750 hours, on March 18, 2018. Final report concurs with initial preliminary interpretation. Attention: This CT examination is specifically designed to evaluate patients who are clinically suspected of having acute obstructive uropathy. This examination does not use radiographic contrast, and as such, provides only a limited evaluation of the abdomen, pelvis, and retroperitoneum. If there is further clinical suspicion for pathological conditions other than obstructive uropathy, a complete CT evaluation of the abdomen and pelvis utilizing intravenous, oral, and rectal contrast should be considered. Chest X-Ray 03/18/18 17:18 Impression: 1. Poor inspiration with compressive atelectatic changes at the lung bases. Imaging: Discussed imaging studies w/ lab aid Radiologist Differential Diagnosis: Differential considered including but not limited to a calculus cholecystitis, intestinal perforation, duodenitis, pancreatitis, bowel obstruction, endocarditis Consult/Admit Bed Type: [place] [id number] - Data Points Laboratory Results: Laboratory Results 03/18/18 17:45 03/18/18 17:45 03/18/18 03/18/18 17:45 17:45 WBC 11.08 10^3/uL H 10^3/uL (3.80-9.50) RBC 3.17 10^6/uL L 10^6/uL (4.40-6.38) Hgb 10.4 g/dL L g/dL (13.7-17.5) Hct 30.5 % L % (40.0-51.0) MCV 96.2 fL fL (81.5-99.8) MCH 32.8 pg pg (27.9-34.1) MCHC 34.1 g/dL g/dL (32.4-36.7) RDW 14.3 % % (11.5-15.2) Plt Count 177 10^3/uL 10^3/uL (150-400) MPV 8.8 fL fL (8.7-11.7) Neut % (Auto) Not Reported Lymph % (Auto) Not Reported [place] % (Auto) Not Reported Eos % (Auto) Not Reported Baso % (Auto) Not Reported Nucleat RBC Rel Count Not Reported Absolute Neuts (auto) Not Reported Absolute Lymphs (auto) Not Reported Absolute Monos (auto) Not Reported Absolute Eos (auto) Not Reported Absolute Basos (auto) Not Reported Absolute Nucleated RBC Not Reported Immature Gran % Not Reported Seg Neutrophils % 84.9 % % Band Neutrophils % 0.0 % % Lymphocytes % 11.1 % % Monocytes % 4.0 % % Eosinophils % 0.0 % % Basophils % 0.0 % % Metamyelocytes % 0.0 % % Myelocytes % 0.0 % % Promyelocytes % 0.0 % % Blast Cells % 0.0 % % Immature Gran # Not Reported Absolute Seg Neuts 9.41 10^3/uL H 10^3/uL (1.70-6.50) Absolute Band Neuts 0.00 10^3/uL 10^3/uL (0.00-0.70) Absolute Lymphocytes 1.23 10^3/uL 10^3/uL (1.00-3.00) Absolute Monocytes 0.44 10^3/uL 10^3/uL (0.30-0.80) Absolute Eosinophils 0.00 10^3/uL L 10^3/uL (0.03-0.40) Absolute Basophils 0.00 10^3/uL L 10^3/uL (0.02-0.10) Absolute Metamyelocyte 0.00 10^3/mL 10^3/mL (0.00-0.00) Absolute Myelocytes 0.00 10^3/mL 10^3/mL (0.00-0.00) Absolute Promyelocytes 0.00 10^3/uL 10^3/uL (0.00-0.00) Absolute Plasma Cells 0.00 10^3/uL 10^3/uL (0.00-0.00) Nucleated RBCs 0 /100 WBC /100 WBC (0-0) Absolute Blast Cells 0.00 10^3/uL 10^3/uL (0.00-0.00) Plasma Cells % 0.0 % % Platelet Estimate ADEQUATE (ADEQ) Polychromasia 1+ H Tear Drop Cells 1+ H Sodium 135 mEq/L mEq/L (135-145) Potassium 4.2 mEq/L mEq/L (3.5-5.2) Chloride 99 mEq/L mEq/L (97-110) Carbon Dioxide 25 mEq/l mEq/l (22-31) Anion Gap 11 mEq/L mEq/L (6-14) BUN 23 mg/dL mg/dL (7-23) Creatinine 4.3 mg/dL H mg/dL (0.7-1.3) Estimated GFR 13 Glucose 107 mg/dL H mg/dL (70-100) Calcium 9.3 mg/dL mg/dL (8.5-10.4) Total Bilirubin 1.1 mg/dL mg/dL (0.1-1.4) Conjugated Bilirubin 0.6 mg/dL H mg/dL (0.0-0.5) Unconjugated Bilirubin 0.5 mg/dL mg/dL (0.0-1.1) AST 21 IU/L IU/L (17-59) ALT 32 IU/L IU/L (21-72) Alkaline Phosphatase 80 IU/L IU/L (38-126) Total Protein 6.1 g/dL L g/dL (6.3-8.2) Albumin 3.6 g/dL g/dL (3.5-5.0) Lipase 45 IU/L IU/L (23-300) Medications Given: Discontinued Medications Fentanyl (Sublimaze) 100 mcg IVP EDNOW ONE Stop: 03/18/18 17:18 Last Admin: 03/18/18 18:00 Dose: 100 mcg Sodium Chloride (Ns) 1,000 mls @ 0 mls/hr IV EDNOW ONE; Wide Open PRN Reason: Protocol Stop: 03/18/18 17:18 Last Admin: 03/18/18 17:58 Dose: 1,000 mls Meropenem 1 gm/ Sodium (Chloride) 120 mls @ 120 mls/hr IV EDNOW ONE PRN Reason: Protocol Stop: 03/18/18 19:07 Last Admin: 03/18/18 18:32 Dose: 120 mls Ondansetron HCl (Zofran) 4 mg IVP EDNOW ONE Stop: 03/18/18 17:18 Last Admin: 03/18/18 18:00 Dose: 4 mg Departure - Departure Disposition: [facility] Inpatient Acute Clinical Impression: Abdominal pain Qualifiers: Abdominal location: right upper quadrant Qualified Code(s): R10.11 - Right upper quadrant pain Condition: Fair
[2018-03-18 18:07] LABS: PLATELET COUNT 177 10^3/uL (150-400)
[2018-03-18] MEDS ORDERED: MEROPENEM 1 GM in NS 100 ML IV ONE (18:08)
--- NOTE | 2018-03-18 18:16 | CPEKG ---
Test Reason : OPEN Blood Pressure : / mmHG Vent. Rate : 113 BPM Atrial Rate : 113 BPM P-R Int : 215 ms QRS Dur : 087 ms QT Int : 309 ms P-R-T Axes : 032 -36 052 degrees QTc Int : 424 ms Sinus tachycardia Prolonged VT interval Inferior infarct, old Confirmed by Salbador Finn ([id number]) on 03/18/2018 6:15:46 PM Referred By: Salbador Finn Confirmed By:Salbador Finn
[2018-03-18] MEDS ORDERED: ACETAMINOPHEN 325 MG TAB PO PRN (19:04)
[2018-03-18] MEDS ORDERED: ONDANSETRON DISINTEGRATING 4 MG TAB PO PRN (19:04)
--- NOTE | 2018-03-18 19:17 | PDGENHP ---
<Lulu Baca - Last Filed: 03/18/18 20:13> History and Physical - Chief Complaint Fever and abdominal pain - History of Present Illness This is an 83 y/o male who was recently admitted here on 03/14/18 for acute abdominal pain notably to his RUQ. Initial evaluation was unremarkable with reassuring abdominal ultrasound and CT. No evidence of perforation or infection. Query of possible IBS considering he had intermittent diarrhea at home. He was discharged on 03/15/[address] that demonstrated constipation and diverticulosis in the descending sigmoid colon which did not correlate to his complaints. Unfortunately, for the last 24 hours he has had worsening abdominal pain in the same RUQ and fevers up to 100.9. Denies vomiting, chest pains, shortness of breath, palpitations, chills. Endorses diarrhea that seems to be improving. CT abdominal/pelvis w/o contrast reveal inflammatory changes surrounding the gallbladder and second portion of the duodenum suggesting acalculous acute cholecystitis versus less likely duodenitis. He is being admitted for further work-up and monitoring. Past Medical History 1. End-stage renal disease, on dialysis TuThSa (does produce urine) 2. HTN 3. Gout 4. CAD s/p 3x stents to RCA 5. Hx of upper GI bleed secondary to polyps 6. Ulnar neuropathy 7. Hyperlipidemia 8. Prostate cancer 9. Hemorrhoids 10. Hyperparathyroidism 11. Osteoporosis 12. GERD Past Surgical History 1. Parathyroid 2. Left AV fistula November 2017 3. Tonsillectomy Social 1. He lives in the area with his of 57 years. 2. 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 3. Denies alcohol, illicit or tobacco use. History Information - Allergies/Home Medication List Allergies/Adverse Reactions: adhesive Allergy (Mild, Verified 03/18/18 16:36) Rash Home Medications: Allopurinol [Allopurinol 100 MG (*)] 100 mg PO DAILY 09/21/15 [Last Taken ] Aspirin [Aspirin 81mg (*)] 81 mg PO HS 09/21/15 [Last Taken 03/13/18] Atorvastatin Calcium [Lipitor 20 mg (*)] 20 mg PO HS 09/21/15 [Last Taken ] Herbals/Supplements -Info Only 1 ea PO DAILY 09/21/15 [Last Taken 11/29/17] Multivitamins [Multivitamin (*)] 1 each PO HS 09/21/15 [Last Taken 03/17/18] Niacin ER [Niaspan 500 mg (*)] 500 mg PO HS 09/21/15 [Last Taken 03/13/18] Paricalcitol [Zemplar] 4 mcg PO MOTH@21 09/21/15 [Last Taken 03/13/18] Ferrous Sulfate [Ferrous Sulf 325 MG (*)] 325 mg PO DAILY 11/29/17 [Last Taken 03/18/18] Sodium Bicarbonate [Na Bicarb] 1,300 mg PO DAILY 11/29/17 [Last Taken 03/18/18] Tamsulosin HCl [Flomax 0.4 MG (*)] 0.4 mg PO BID 11/29/17 [Last Taken 03/18/18 09:00] Ascorbic Acid [Vitamin C 500 mg (*)] 500 mg PO HS 03/14/18 [Last Taken 03/17/18] Calcium Carbonate [Tums 500MG (*)] 1,000 mg PO 03/14/18 [Last Taken ] Calcium Carbonate [Tums 500MG (*)] 500 mg PO DAILY@12 03/14/18 [Last Taken 03/13] Cholecalciferol Vit D3 [Vitamin D3 (*)] 1,000 units PO HS 03/14/18 [Last Taken 03/17/18] Fluticasone Nasal [Flonase Nasal [place]] 1 sprays EACHNARE BID 03/14/18 [Last Taken 03/13/18 21:00] Ondansetron Odt [Zofran Odt 4 mg (*)] 4 mg PO BID PRN 03/14/18 [Last Taken 03/14] Sodium Bicarbonate [Na Bicarb] 1,950 mg PO HS 03/14/18 [Last Taken 03/17/18] Vitamin B Complex [Vitamin B Complex (OTC)] 1 each PO HS 03/14/18 [Last Taken ] Furosemide [Lasix 20 MG (*)] 40 mg PO DAILY16 03/18/18 [Last Taken Unknown] I have personally reviewed and updated: family history, medical history, social history, surgical history Past Medical History: See HPI list - Surgical History Additional surgical history: See HPI list - Family History Positive for: diabetes type II Additional family history: Father from bacteremia after complications from hip surgery - Social History Smoking Status: Never smoked Alcohol Use: None Drug Use: None Review of Systems Review of Systems: ROS: 10pt was reviewed & negative except for what was stated in HPI & below Constitutional: Reports: fever, malaise EENMT: Reports: no symptoms Cardiac: Reports: no symptoms Respiratory: Reports: no symptoms Gastrointestinal: Reports: abdominal pain, diarrhea, nausea Genitourinary: Reports: no symptoms, other (Dialysis TuThSa) Muscolosketal: Reports: no symptoms Skin: Reports: no symptoms Neurological: Reports: no symptoms Hematologic/Lymphatic: Reports: no symptoms Immunologic/Allergy: Reports: no symptoms, other (Adhesive) Physical Exam Physical Exam: Lab data and imaging were reviewed. WBC: 11.08 RBC/H/H: 3.17/10.4/30.5 K: 4.2 BUN/Creatinine: 23/4.3 Ab/Pelvis CT: see HPI EKG: Sinus tachycardia, no acute ischemic changes noted Temp Pulse Resp BP Pulse Ox 37.4 C 109 H 20 139/73 H 92 03/18/18 19:07 03/18/18 19:07 03/18/18 19:07 03/18/18 19:07 03/18/18 19:07 Constitutional: no apparent distress, appears nourished, obese, uncomfortable Eyes: PERRL, anicteric sclera, EOMI Ears, Nose, Mouth, Throat: moist mucous membranes, hearing normal, ears appear normal, no oral mucosal ulcers Cardiovascular: regular rate and rhythym, no murmur, rub, or gallop, tachycardia Peripheral Pulses: 2+: dorsalis-pedis (R) (Radial 2+), dorsalis-pedis (L) ( Radial 2+; able to palpate fistula "thrill"; auscultated no bruit) Respiratory: no respiratory distress, no rales or rhonchi, clear to auscultation Gastrointestinal: normoactive bowel sounds, tenderness, duval's sign, guarding Genitourinary: no bladder fullness, no bladder tenderness Skin: warm, normal color, no rashes or abrasions, no fluctuance, no induration, No mottled Musculoskeletal: full muscle strength, no muscle tenderness, normal joint ROM, no joint effusions Neurologic: AAOx3, sensation intact bilaterally, CN II-XII Intact Psychiatric: interacting appropriately, not anxious, not encephalopathic, thought process linear Lymph, Heme, Immunologic: no cervical LAD, no supraclavicular LAD Lab Data & Imaging Review 03/18/18 17:45 03/18/18 17:45 WBC 11.08 10^3/uL (3.80-9.50) H 03/18/18 17:45 RBC 3.17 10^6/uL (4.40-6.38) L 03/18/18 17:45 Hgb 10.4 g/dL (13.7-17.5) L 03/18/18 17:45 Hct 30.5 % (40.0-51.0) L 03/18/18 17:45 MCV 96.2 fL (81.5-99.8) 03/18/18 17:45 MCH 32.8 pg (27.9-34.1) 03/18/18 17:45 MCHC 34.1 g/dL (32.4-36.7) 03/18/18 17:45 RDW 14.3 % (11.5-15.2) 03/18/18 17:45 Plt Count 177 10^3/uL (150-400) 03/18/18 17:45 MPV 8.8 fL (8.7-11.7) 03/18/18 17:45 Sodium 135 mEq/L (135-145) 03/18/18 17:45 Potassium 4.2 mEq/L (3.5-5.2) 03/18/18 17:45 Chloride 99 mEq/L (97-110) 03/18/18 17:45 Carbon Dioxide 25 mEq/l (22-31) 03/18/18 17:45 Anion Gap 11 mEq/L (6-14) 03/18/18 17:45 BUN 23 mg/dL (7-23) 03/18/18 17:45 Creatinine 4.3 mg/dL (0.7-1.3) H 03/18/18 17:45 Estimated GFR 13 03/18/18 17:45 Glucose 107 mg/dL (70-100) H 03/18/18 17:45 Calcium 9.3 mg/dL (8.5-10.4) 03/18/18 17:45 Total Bilirubin 1.1 mg/dL (0.1-1.4) 03/18/18 17:45 Conjugated Bilirubin 0.6 mg/dL (0.0-0.5) H 03/18/18 17:45 Unconjugated Bilirubin 0.5 mg/dL (0.0-1.1) 03/18/18 17:45 AST 21 IU/L (17-59) 03/18/18 17:45 ALT 32 IU/L (21-72) 03/18/18 17:45 Alkaline Phosphatase 80 IU/L (38-126) 03/18/18 17:45 Total Protein 6.1 g/dL (6.3-8.2) L 03/18/18 17:45 Albumin 3.6 g/dL (3.5-5.0) 03/18/18 17:45 Lipase 45 IU/L (23-300) 03/18/18 17:45 Assessment & Plan Plan: 1. Acute abdominal pain: He did have an ultrasound last week that showed no gallstones. Today's abdominal/pelvis CT showed inflammation fluid around gallbladder and duodenum. Afebrile currently. Tachycardic. -Consult nephrology however did not speak to Dr. Hernandez (who is precision lens polisher) in particular as this consult is more for when the pt needs dialysis which is Saturday (He did receive dialysis today prior to coming), and Saturday. I did speak to Dr. Gabriel Oseguera from [facility] re: the pt's ability to receive contrast during a HIDA scan considering his renal function. Dr. Oseguera does not see this being a problem. -HIDA scan w/contrast ordered for tomorrow; NPO at midnight tonight -Consulted surgery. Dr Glen Degroot to evaluate pt -Received Fentanyl in ED; continue pain management PO/IVP PRN -Renally dosed Meropenem 500mg Q24H. Received 1g tonight in ED. -Blood cultures pending 2. End stage renal disease: receives dialysis. Dr. Xiomy Del Rosario. Next dialysis is . 3. Hypertension: Resume home medications. 4. Gout: allopurinol. 5. CAD: No chest pains. On asa. 6. Hyperlipidemia: Niacin 7. History of prostate cancer: s/p proton therapy. Flomax. Diet: Renal now, NPO at midnight tonight VTE ppx: SCDs Code: Full Dispo: Admit to inpatient <Steve Montes - Last Filed: 03/18/18 21:34> History and Physical - History of Present Illness Review of Systems Review of Systems: Physical Exam Physical Exam: Temp Pulse Resp BP Pulse Ox 36.8 C 104 H 18 123/77 H 93 03/18/18 21:05 03/18/18 21:05 03/18/18 21:05 03/18/18 21:05 03/18/18 21:05 Constitutional: no apparent distress, appears nourished, not in pain Eyes: PERRL, anicteric sclera, EOMI Ears, Nose, Mouth, Throat: moist mucous membranes, hearing normal, ears appear normal, no oral mucosal ulcers Cardiovascular: regular rate and rhythym, no murmur, rub, or gallop, tachycardia , edema Respiratory: no respiratory distress, no rales or rhonchi, clear to auscultation Gastrointestinal: normoactive bowel sounds, tenderness (Right upper quadrant), duval's sign, guarding, No rebound Musculoskeletal: full muscle strength, no muscle tenderness, normal joint ROM, no joint effusions Neurologic: AAOx3, sensation intact bilaterally, No facial droop Psychiatric: interacting appropriately, not anxious, not encephalopathic, thought process linear Lymph, Heme, Immunologic: no cervical LAD, no supraclavicular LAD Lab Data & Imaging Review 03/18/18 17:45 03/18/18 17:45 WBC 11.08 10^3/uL (3.80-9.50) H 03/18/18 17:45 RBC 3.17 10^6/uL (4.40-6.38) L 03/18/18 17:45 Hgb 10.4 g/dL (13.7-17.5) L 03/18/18 17:45 Hct 30.5 % (40.0-51.0) L 03/18/18 17:45 MCV 96.2 fL (81.5-99.8) 03/18/18 17:45 MCH 32.8 pg (27.9-34.1) 03/18/18 17:45 MCHC 34.1 g/dL (32.4-36.7) 03/18/18 17:45 RDW 14.3 % (11.5-15.2) 03/18/18 17:45 Plt Count 177 10^3/uL (150-400) 03/18/18 17:45 MPV 8.8 fL (8.7-11.7) 03/18/18 17:45 Neut % (Auto) Not Reported 03/18/18 17:45 Lymph % (Auto) Not Reported 03/18/18 17:45 [place]on % (Auto) Not Reported 03/18/18 17:45 Eos % (Auto) Not Reported 03/18/18 17:45 Baso % (Auto) Not Reported 03/18/18 17:45 Nucleat RBC Rel Count Not Reported 03/18/18 17:45 Absolute Neuts (auto) Not Reported 03/18/18 17:45 Absolute Lymphs (auto) Not Reported 03/18/18 17:45 Absolute Monos (auto) Not Reported 03/18/18 17:45 Absolute Eos (auto) Not Reported 03/18/18 17:45 Absolute Basos (auto) Not Reported 03/18/18 17:45 Absolute Nucleated RBC Not Reported 03/18/18 17:45 Immature Gran % Not Reported 03/18/18 17:45 Seg Neutrophils % 84.9 % 03/18/18 17:45 Band Neutrophils % 0.0 % 03/18/18 17:45 Lymphocytes % 11.1 % 03/18/18 17:45 Monocytes % 4.0 % 03/18/18 17:45 Eosinophils % 0.0 % 03/18/18 17:45 Basophils % 0.0 % 03/18/18 17:45 Metamyelocytes % 0.0 % 03/18/18 17:45 Myelocytes % 0.0 % 03/18/18 17:45 Promyelocytes % 0.0 % 03/18/18 17:45 Blast Cells % 0.0 % 03/18/18 17:45 Immature Gran # Not Reported 03/18/18 17:45 Absolute Seg Neuts 9.41 10^3/uL (1.70-6.50) H 03/18/18 17:45 Absolute Band Neuts 0.00 10^3/uL (0.00-0.70) 03/18/18 17:45 Absolute Lymphocytes 1.23 10^3/uL (1.00-3.00) 03/18/18 17:45 Absolute Monocytes 0.44 10^3/uL (0.30-0.80) 03/18/18 17:45 Absolute Eosinophils 0.00 10^3/uL (0.03-0.40) L 03/18/18 17:45 Absolute Basophils 0.00 10^3/uL (0.02-0.10) L 03/18/18 17:45 Absolute Metamyelocyte 0.00 10^3/mL (0.00-0.00) 03/18/18 17:45 Absolute Myelocytes 0.00 10^3/mL (0.00-0.00) 03/18/18 17:45 Absolute Promyelocytes 0.00 10^3/uL (0.00-0.00) 03/18/18 17:45 Absolute Plasma Cells 0.00 10^3/uL (0.00-0.00) 03/18/18 17:45 Nucleated RBCs 0 /100 WBC (0-0) 03/18/18 17:45 Absolute Blast Cells 0.00 10^3/uL (0.00-0.00) 03/18/18 17:45 Plasma Cells % 0.0 % 03/18/18 17:45 Platelet Estimate ADEQUATE (ADEQ) 03/18/18 17:45 Polychromasia 1+ H 03/18/18 17:45 Tear Drop Cells 1+ H 03/18/18 17:45 Sodium 135 mEq/L (135-145) 03/18/18 17:45 Potassium 4.2 mEq/L (3.5-5.2) 03/18/18 17:45 Chloride 99 mEq/L (97-110) 03/18/18 17:45 Carbon Dioxide 25 mEq/l (22-31) 03/18/18 17:45 Anion Gap 11 mEq/L (6-14) 03/18/18 17:45 BUN 23 mg/dL (7-23) 03/18/18 17:45 Creatinine 4.3 mg/dL (0.7-1.3) H 03/18/18 17:45 Estimated GFR 13 03/18/18 17:45 Glucose 107 mg/dL (70-100) H 03/18/18 17:45 Calcium 9.3 mg/dL (8.5-10.4) 03/18/18 17:45 Total Bilirubin 1.1 mg/dL (0.1-1.4) 03/18/18 17:45 Conjugated Bilirubin 0.6 mg/dL (0.0-0.5) H 03/18/18 17:45 Unconjugated Bilirubin 0.5 mg/dL (0.0-1.1) 03/18/18 17:45 AST 21 IU/L (17-59) 03/18/18 17:45 ALT 32 IU/L (21-72) 03/18/18 17:45 Alkaline Phosphatase 80 IU/L (38-126) 03/18/18 17:45 Total Protein 6.1 g/dL (6.3-8.2) L 03/18/18 17:45 Albumin 3.6 g/dL (3.5-5.0) 03/18/18 17:45 Lipase 45 IU/L (23-300) 03/18/18 17:45 Assessment & Plan Assessment: Abdominal pain (Acute) Plan: Patient was seen and examined. I agree with the assessment and plan by Lulu Baca. Assessment/ Right upper quadrant abdominal pain concerning for acalculous cholecystitis -continue antibiotics -HIDA scan -surgery consult
[2018-03-18] MEDS ORDERED: HYDROmorphONE/DILAUDID 2 MG/ML INJ IVP PRN (20:09)
[2018-03-18] MEDS ORDERED: HYDROmorphONE/DILAUDID 2 MG/ML INJ IVP ONE (20:32)
--- NOTE | 2018-03-18 21:17 | SOAPPROG ---
SOVIKTORIA Progress Note Assessment/Plan: Assessment: 83 MALE WITH SIGNS AND SYMPTOMS OF ACALCULOUS CHOLECYSTITIS LFTs OK HIDA PENDING WBC 11K Plan:FU EVAL IN AM / MAY NEED DIALYSIS PRIOR TO ANY LAP TABITAH 03/18/18 21:16 Objective: Vital Signs Temp Pulse Resp BP Pulse Ox 36.8 C 104 H 18 123/77 H 93 03/18/18 21:05 03/18/18 21:05 03/18/18 21:05 03/18/18 21:05 03/18/18 21:05 03/17/18 03/18/18 03/19/18 05:59 05:59 05:59 Intake Total 1270 Output Total 0 Balance 1270 ICD10 Worksheet Patient Problems: Problems Problem Status Onset Abdominal pain Acute Rectal bleeding Acute
[2018-03-18] MEDS: MULTIVITAMINS 1 EACH TAB PO SCH (21:35)
[2018-03-18] MEDS: VITAMIN B COMPLEX 1 EA CAP/TAB PO SCH (21:35)
[2018-03-18] MEDS: ATORVASTATIN CALCIUM 20 MG TAB PO SCH (21:35)
[2018-03-18] MEDS: TAMSULOSIN HCL 0.4 MG CAP PO SCH (21:35)
[2018-03-18] MEDS: ASPIRIN 81 MG CHEWABLE TAB PO SCH (21:35)
[2018-03-18] MEDS: NIACIN ER 500 MG TAB.ER PO SCH (21:35)
[2018-03-18] MEDS: CHOLECALCIFEROL VIT D3 1,000 UNITS TAB PO SCH (21:35)
[2018-03-18] MEDS: ASCORBIC ACID 500 MG TAB PO SCH (21:35)
[2018-03-18] MEDS: SODIUM BICARBONATE 650 MG TAB PO SCH (21:36)
[2018-03-18] MEDS ORDERED: MEROPENEM 1 GM in NS 100 ML IV SCH (22:00)
[2018-03-18] MEDS: FLUTICASONE NASAL 120 SPRAYS/16 GM MDI EACHNARE SCH (22:30)
[2018-03-19] MEDS: HYDROmorphONE/DILAUDID 2 MG/ML INJ IVP PRN ×4 (02:23→21:22)
[2018-03-19 05:27] LABS: PLATELET COUNT 163 10^3/uL (150-400)
[2018-03-19] MEDS ORDERED: Herbals/Supplements -Info Only PO SCH (09:00)
--- NOTE | 2018-03-19 09:11 | SOAPPROG ---
NARINDER Progress Note Assessment/Plan: Assessment/Plan: 83 Y M c prior admission on 03/14, admitted with RUQ abdominal pain and low grade fever. CT suggests inflammatory changes around gallbladder. Prior US without stones. LFTs wnl. HIDA scan today. Will add protonix bid in case of peptic ulcer disease which is still in the ddx. Need for lap keaton still possible. S: comfortable. O: alert, nad no jaundice no wob rrr abd soft, no guarding 03/19/18 09:08 Objective: Vital Signs Temp Pulse Resp BP Pulse Ox 37.6 C 113 H 18 104/57 L 90 L 03/19/18 08:30 03/19/18 08:30 03/19/18 08:30 03/19/18 08:30 03/19/18 08:30 Microbiology 03/19/18 00:30 Respiratory Panel (PCR) - Final Nasal, Sinus - Anaerobic Tube/Swab No Organism Detected By Pcr Laboratory Results 03/19/18 04:47 03/19/18 04:47 03/18/18 03/19/18 03/20/18 05:59 05:59 05:59 Intake Total 1370 Output Total 0 Balance 1370 ICD10 Worksheet Patient Problems: Problems Problem Status Onset Abdominal pain Acute Rectal bleeding Acute
[2018-03-19] MEDS: SODIUM BICARBONATE 650 MG TAB PO SCH ×2 (10:42→23:40)
[2018-03-19] MEDS: TAMSULOSIN HCL 0.4 MG CAP PO SCH ×2 (10:42→23:40)
[2018-03-19] MEDS: ALLOPURINOL 100 MG TAB PO SCH (10:42)
[2018-03-19] MEDS: CALCIUM CARBONATE 500 MG CHEWABLE TAB PO SCH ×6 (10:42→18:38)
[2018-03-19] MEDS: PANTOPRAZOLE SODIUM 40 MG VIAL IVP SCH ×2 (10:42→21:15)
[2018-03-19] MEDS: FERROUS SULFATE 325 MG TAB PO SCH (10:42)
--- NOTE | 2018-03-19 10:46 | PDMN ---
Medical Necessity Medical necessity: Pt meets IP criteria as of 03/18/2018 per and MCGM-05 ( Abdominal pain, undiagnosed); est los > 2 mn for ongoing tx and management of abdominal pain with fever and tachycardia in the setting of ESRD; requiring further workup, nephrology consultation, surgical consultation, NPO status with close monitoring of electrolytes and kidney function, and management of chronic conditions including HTN, gout, CAD, hyperlipidemia and prostate CA.
--- NOTE | 2018-03-19 14:10 | ASMTCASEMG ---
Living Arrangements What is your living Answers: With Spouse arrangement? Who do you live with? Type Of Residence What kind of residence do Answers: House you live in? Discharge Plan Comments Coordination Status Comments Notes: Patient is an 83yo male who is in end stage renal disease and had a recent admission with [facility] on 03/14/18. Patient presents with worsening abdominal pain and has been admitted for further work up of abdominal pain, end stage renal disease, hypertension and hyperlipidemia. 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 No therapies ordered at this time. D/C plan TBD. CM will follow. Date Signed: 03/19/2018 02:08 PM Electronically Signed By:Belkys Llamas LCSW
--- NOTE | 2018-03-19 16:24 | HOSPPROG ---
Hospitalist Progress Note Assessment/Plan: 83 yo M w esrd here w abd pain and now + HIDA scan c/w acute cholecystitis cholecystitis: needs lap keaton surgery aware on schedule for this pm or tomorrow continue meropenem esrd: due for HD tomorrow htn: continue meds leukocytosis: explained by acute cholecystitis dispo: inpt Subjective: case d/w dr parkinson Objective: Vital Signs Temp Pulse Resp BP Pulse Ox 37.1 C 99 16 123/69 H 93 03/19/18 11:05 03/19/18 11:05 03/19/18 11:05 03/19/18 11:05 03/19/18 11:05 Microbiology 03/19/18 00:30 Respiratory Panel (PCR) - Final Nasal, Sinus - Anaerobic Tube/Swab No Organism Detected By Pcr Laboratory Results 03/19/18 04:47 03/19/18 04:47 03/18/18 03/19/18 03/20/18 05:59 05:59 05:59 Intake Total 1370 Output Total 0 Balance 1370 - Physical Exam Constitutional: no apparent distress, appears nourished Eyes: PERRL, anicteric sclera Ears, Nose, Mouth, Throat: moist mucous membranes, hearing normal Cardiovascular: regular rate and rhythym, no murmur, rub, or gallop Respiratory: no respiratory distress, no rales or rhonchi Gastrointestinal: normoactive bowel sounds, soft, non-tender abdomen, duval's sign, No guarding, No rebound Genitourinary: no bladder fullness, No sandoval in urethra Skin: warm, normal color Musculoskeletal: full muscle strength, no muscle tenderness Neurologic: AAOx3 ICD10 Worksheet Patient Problems: Problems Problem Status Onset Abdominal pain Acute Rectal bleeding Acute
--- NOTE | 2018-03-19 17:14 | GCON ---
[f rep st] CONSULTATION NEPHROLOGY CONSULTATION DATE OF CONSULTATION: 03/19/2018 REASON FOR CONSULTATION: End-stage renal disease. HISTORY OF PRESENT ILLNESS: I have been asked to evaluate the patient regarding his end-stage renal disease. He is an 83-year-old gentleman with a history of end-stage renal disease, presumed secondar y to hypertension. He just initiated chronic hemodialysis in January of 2018, and has been dialyzed on a Saturday, , Saturday schedule at the [facility]. He denies any issues wi th his hemodialysis in general. He was admitted to this institution last weekend with abdominal pain , and had an unremarkable evaluation. His symptoms worsened after returning home, and yesterday he w as in sufficient pain, that he was unable to complete his 4-hour dialysis treatment. He also had bee n having low-grade temperatures at home as high as 100.9. It was, therefore, recommended that he ret urn to the emergency room. He contacted his primary care physician, who also concurred with emergenc y room. He had a repeat CT demonstrating inflammatory changes around his gallbladder, and a HIDA sca n was performed earlier today that documented nonvisualization of the gallbladder. He has been seen by General Surgery. He currently feels better, but attributes this to pain medications. I have been asked to evaluate him regarding his end-stage renal disease. PAST MEDICAL HISTORY: 1. End-stage renal disease, presumed secondary to hypertension as outlined above. 2. Long-standing hypertension. 3. Coronary artery disease. 4. Hyperlipidemia. 5. Gastroesophageal reflux. 6. Osteoporosis. 7. History of GI bleed. 8. Prostate cancer. 9. Gout. 10. Hyperparathyroidism. PAST SURGICAL HISTORY: 1. Left upper extremity AV fistula in November 2017. 2. Parathyroidectomy. 3. Tonsils. ALLERGIES: Adhesive tape. CURRENT MEDICATIONS: Allopurinol 100 mg daily, vitamin C 500 mg nightly, aspirin 81 mg daily, Lipito r 20 mg daily, calcium carbonate with meals, vitamin D3 daily, iron sulfate 325 mg daily, Flonase joseph ly, Lasix 40 mg once daily. Hydromorphone as needed for pain; meropenem 500 mg daily; niacin 500 mg at bedtime; Protonix 40 mg IV twice daily; sodium bicarbonate 1300 mg p.o. daily, 1950 mg nightly; Fl omax 0.4 mg twice daily; B complex nightly; oxycodone as needed for pain. SOCIAL HISTORY: He is a nonsmoker, nondrinker. 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 FAMILY HISTORY: Positive for diabetes. REVIEW OF SYSTEMS: Positive for abdominal pain and fevers. He denies any nausea, vomiting, diarrhea . Aside from other positives noted in HPI, the remainder of 10 organ system review is negative. PHYSICAL EXAM: GENERAL: He is well-appearing, in no acute distress. VITAL SIGNS: Blood pressure 1 23/69, heart rate 99. Oxygenation is 93% on room air. HEENT: Sclerae anicteric. Oral mucosa is mo ist. Oropharynx is clear. NECK: Supple without JVD or lymphadenopathy. There are no carotid bruit s. LUNGS: Clear to auscultation bilaterally with the exception of faint end-expiratory wheeze. PARAMJIT K: No CVA tenderness. HEART: Regular rate and rhythm without murmurs, gallops, or rubs. ABDOMEN: Obese, but soft, with positive bowel sounds. He has significant right upper quadrant tenderness, bu t no rebound tenderness. The remainder of his abdomen is nontender. EXTREMITIES: He has trace lowe r extremity edema. His feet are warm and appear well perfused. An AV fistula is present in his left forearm with an excellent bruit and thrill. SKIN: There are no skin rashes. NEURO: He is awake, alert, and appropriate. There is no facial droop. : Ambriz catheter is absent. LABS: Sodium 135, potassium 4.2, chloride 103, CO2 22, BUN 30, creatinine 5.1, glucose 110, calcium 8.4, albumin 2.8, total protein 5.0, ALT 25, AST 19, total bilirubin 0.7, white blood cell count 10.7 , hemoglobin 9.0, platelets 163. IMPRESSION AND PLAN: 1. End-stage renal disease: We will plan to dialyze the patient tomorrow on his typical Saturday, , Saturday schedule. He appears quite stable from both a metabolic and volume standpoint melvin perez, therefore, Surgery felt that it was necessary for him to proceed with cholecystectomy this even ing. I think that would be safe from a dialysis standpoint. If necessary, we can arrange his dialys is tomorrow around his scheduled OR time. I would be extremely judicious with IV fluids perioperativ sofya. Care should be taken to avoid trauma to his arteriovenous fistula. He should not receive potas sium-containing IV fluids, such as lactated Ringer's. 2. Hypertension: This is well controlled. He should continue his typical medications. 3. Right upper quadrant pain: He appears to have cholecystitis, and will likely require cholecystec saurabh. He is on antibiotics, and has been evaluated by Surgery. 4. Anemia: His hemoglobin is at goal yesterday evening, but has dropped significantly as of this mo rning. I suspect this may be partially dilutional, as it does appear he received some IV fluids yest erday. I would follow this for now. Thank you for the consultation. We will follow with you. /[id number]/MODL
[2018-03-19] MEDS: FLUTICASONE NASAL 120 SPRAYS/16 GM MDI EACHNARE SCH ×2 (17:24→23:39)
[2018-03-19] MEDS: FUROSEMIDE 40 MG TAB PO SCH (17:25)
[2018-03-19] MEDS ORDERED: MEROPENEM 500 MG in NS 100 ML IV SCH (18:00)
[2018-03-19] MEDS: oxyCODONE IR 5 MG TAB PO PRN ×2 (20:36→21:15)
[2018-03-19] MEDS ORDERED: SIMETHICONE 80 MG TAB CHEW PO PRN (20:50)
[2018-03-19] MEDS: ONDANSETRON 4 MG/2 ML VIAL IVP PRN (21:21)
[2018-03-19] MEDS ORDERED: NALOXONE HCL 0.4 MG/ML INJ IVP PRN (22:32)
[2018-03-19] MEDS: NS 1,000 ML IV SCH ×2 (23:05→23:10)
[2018-03-19] MEDS: HYDROmorphONE/DILAUDID 6 MG/30 ML PCA IV PRN (23:10)
--- NOTE | 2018-03-19 23:10 | SOAPPROG ---
SOVIKTORIA Progress Note Assessment/Plan: Assessment: 83 MALE WITH SIGNS AND SYMPTOMS OF ACALCULOUS CHOLECYSTITIS LFTs OK HIDA PENDING WBC 11K Plan:FU EVAL IN AM / MAY NEED DIALYSIS PRIOR TO ANY LAP TABITHA 03/18/18 21:16 03/19/18 23:08 AFEBRILE THE CONTINUES TO HAVE SIGNIFICANT RIGHT UPPER QUADRANT PAIN/HIDA SCAN WAS NON VIS/LFTS ARE NORMAL/WBC 10 K RISKS AND OPTIONS FULLY DISCUSSED FINDINGS CONSISTENT WITH ACUTE CHOLECYSTITIS PLAN PROCEED WITH LAP CHOLY IN THE A.M. HEENT NONICTERIC/CHEST CLEAR/COR REGULAR TACHYCARDIA/ABDOMEN SOFT, DISTENDED BUT VERY TENDER IN THE RIGHT UPPER QUADRANT Objective: Vital Signs Temp Pulse Resp BP Pulse Ox 36.9 C 99 18 127/70 H 90 L 03/19/18 19:18 03/19/18 19:18 03/19/18 19:18 03/19/18 19:18 03/19/18 19:18 Microbiology 03/19/18 00:30 Respiratory Panel (PCR) - Final Nasal, Sinus - Anaerobic Tube/Swab No Organism Detected By Pcr Laboratory Results 03/19/18 04:47 03/19/18 04:47 03/18/18 03/19/18 03/20/18 05:59 05:59 05:59 Intake Total 1370 480 Output Total 0 Balance 1370 480 ICD10 Worksheet Patient Problems: Problems Problem Status Onset Abdominal pain Acute Rectal bleeding Acute
[2018-03-19] MEDS: NIACIN ER 500 MG TAB.ER PO SCH (23:39)
[2018-03-19] MEDS: MULTIVITAMINS 1 EACH TAB PO SCH (23:39)
[2018-03-19] MEDS: ATORVASTATIN CALCIUM 20 MG TAB PO SCH (23:39)
[2018-03-19] MEDS: ASPIRIN 81 MG CHEWABLE TAB PO SCH (23:39)
[2018-03-19] MEDS: CHOLECALCIFEROL VIT D3 1,000 UNITS TAB PO SCH (23:39)
[2018-03-19] MEDS: ASCORBIC ACID 500 MG TAB PO SCH (23:39)
[2018-03-19] MEDS: VITAMIN B COMPLEX 1 EA CAP/TAB PO SCH (23:40)
[2018-03-20] MEDS: ACETAMINOPHEN 500 MG TAB PO PRN (01:22)
[2018-03-20 05:23] LABS: PLATELET COUNT 185 10^3/uL (150-400)
[2018-03-20] MEDS ORDERED: BUPIVACAINE 0.5% 30 ML SDV ONE (07:39)
[2018-03-20] MEDS ORDERED: HEPARIN 1000 UNIT/1 ML MDV ONE (07:39)
[2018-03-20] MEDS ORDERED: ceFAZolin 1 GM/5 ML SYR ONE (07:40)
--- NOTE | 2018-03-20 10:38 | SOAPPROG ---
SOAP Progress Note Assessment/Plan: Assessment/Plan: ESRD: on HD TTS. Pt seen on HD today per routine. Metabolic acidosis: will modulate with HD, pt also on sodium bicarb tabs. HTN: BP at goal on Lasix. Anemia: Hgb 8.9, will continue to monitor post-op. Subjective: No acute events overnight. Pt states he still gets abdominal pain. He has minimal swelling in legs. He is on HD this am and tolerating fine, has no complaints. Going to OR after HD. Objective: Vital Signs Temp Pulse Resp BP Pulse Ox 37.6 C 103 H 18 112/57 L 91 L 03/20/18 05:29 03/20/18 05:29 03/20/18 05:29 03/20/18 05:29 03/20/18 05:29 Microbiology 03/19/18 00:30 Respiratory Panel (PCR) - Final Nasal, Sinus - Anaerobic Tube/Swab No Organism Detected By Pcr Laboratory Results 03/20/18 04:49 03/20/18 04:49 03/19/18 03/20/18 03/21/18 05:59 05:59 05:59 Intake Total 1370 480 Output Total 0 Balance 1370 480 General: alert and oriented, no acute distress Eyes: EOMI, PERRL OP: Clear CV: RRR Resp: nonlabored respirations Abd: Soft Ext: trace edema BLE Neuro: CN II-XII grossly intact, no asterixis Psych: cooperative Access: LUE AVF cannulated ICD10 Worksheet Patient Problems: Problems Problem Status Onset Abdominal pain Acute Rectal bleeding Acute
[2018-03-20] MEDS ORDERED: NS 1,000 ML IV ONE (11:35)
[2018-03-20] MEDS ORDERED: MIDAZOLAM 2 MG/2 ML VIAL IVP ONE (11:49)
--- NOTE | 2018-03-20 11:49 | PDANEPAE ---
ANE History of Present Illness 83 yo for lap keaton ANE Past Medical History - Cardiovascular History Hx Hypertension: Yes Hx Arrhythmias: No Hx Chest Pain: No Hx Coronary Artery / Peripheral Vascular Disease: Yes Hx CHF / Valvular Disease: No Hx Palpitations: No Cardiovascular History Comment: STENTS X3 LAST 2006 - Pulmonary History Hx COPD: No Hx Asthma/Reactive Airway Disease: No Hx Recent Upper Respiratory Infection: No Hx Oxygen in Use at Home: No Hx Sleep Apnea: No Sleep Apnea Screening Result - Last Documented: Positive - Neurologic History Hx Cerebrovascular Accident: No Hx Seizures: No Hx Dementia: No - Endocrine History Hx Diabetes: No - Renal History Hx Renal Disorders: Yes Renal History Comment: ESRD. 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 USE OF RX. PREV GI BLEED. HX OF POLYPS - Other Health History Other Health History: ITCHING. GOUT. ANEMIA. BRUISES EASILY. WEARS EYE GLASSES. OSTEOPOROSIS - Chronic Pain History Chronic Pain: Yes (JUNAID HIPS) - Surgical History Prior Surgeries: FLEX SIGMOID/HEMORRHOID BONDING. PARATHYROID. TONSILLECTOMY ANE Review of Systems Review of Systems: - Exercise capacity METS (RN): 3 METS ANE Patient History - Allergies Allergies/Adverse Reactions: adhesive Allergy (Mild, Verified 03/18/18 16:36) Rash - Home Medications Home medications: home medication list seen and reviewed Home Medications: Allopurinol [Allopurinol 100 MG (*)] 100 mg PO DAILY 09/21/15 [Last Taken ] Aspirin [Aspirin 81mg (*)] 81 mg PO HS 09/21/15 [Last Taken 03/13/18] Atorvastatin Calcium [Lipitor 20 mg (*)] 20 mg PO HS 09/21/15 [Last Taken ] Herbals/Supplements -Info Only 1 ea PO DAILY 09/21/15 [Last Taken 11/29/17] Multivitamins [Multivitamin (*)] 1 each PO HS 09/21/15 [Last Taken 03/17/18] Niacin ER [Niaspan 500 mg (*)] 500 mg PO HS 09/21/15 [Last Taken 03/13/18] Paricalcitol [Zemplar] 4 mcg PO MOTH@09/21/15 [Last Taken 03/13/18] Ferrous Sulfate [Ferrous Sulf 325 MG (*)] 325 mg PO DAILY 11/29/17 [Last Taken 03/18/18] Sodium Bicarbonate [Na Bicarb] 1,300 mg PO DAILY 11/29/17 [Last Taken 03/18/18] Tamsulosin HCl [Flomax 0.4 MG (*)] 0.4 mg PO BID 11/29/17 [Last Taken 03/18/18 09:00] Ascorbic Acid [Vitamin C 500 mg (*)] 500 mg PO HS 03/14/18 [Last Taken 03/17/18] Calcium Carbonate [Tums 500MG (*)] 1,000 mg PO 03/14/18 [Last Taken ] Calcium Carbonate [Tums 500MG (*)] 500 mg PO DAILY@03/14/18 [Last Taken 03/13] Cholecalciferol Vit D3 [Vitamin D3 (*)] 1,000 units PO HS 03/14/18 [Last Taken 03/17/18] Fluticasone Nasal [Flonase Nasal [place]] 1 sprays EACHNARE BID 03/14/18 [Last Taken 03/13/18 21:00] Ondansetron Odt [Zofran Odt 4 mg (*)] 4 mg PO BID PRN 03/14/18 [Last Taken 03/14] Sodium Bicarbonate [Na Bicarb] 1,950 mg PO 03/14/18 [Last Taken 03/17/18] Vitamin B Complex [Vitamin B Complex (OTC)] 1 each PO HS 03/14/18 [Last Taken ] Furosemide [Lasix 20 MG (*)] 40 mg PO DAILY16 03/18/18 [Last Taken Unknown] - NPO status NPO Status: no food or drink >8 hours NPO Since - Liquids (Date): 03/19/18 NPO Since - Liquids (Time): 00:00 NPO Since - Solids (Date): 03/19/18 NPO Since - Solids (Time): 00:00 - Smoking Hx Smoking Status: Never smoked - Alcohol Use Alcohol Use: None - Family Anes Hx Family Hx Anesthesia Complications: SON HAD DIFFICULTY CARDIAC ARREST AT AGE 17 ANE Labs/Vital Signs - Labs Result Diagrams: 03/20/18 04:49 03/20/18 04:49 - Vital Signs Blood Pressure: 112/57 Heart Rate: 103 Respiratory Rate: 18 O2 Sat (%): 91 Height: 6 ft 3.5 in Weight: 102 kg ANE Physical Exam - Airway Neck exam: FROM Mallampati Score: Class 2 Mouth exam: normal dental/mouth exam - Pulmonary Pulmonary: no respiratory distress - Cardiovascular Cardiovascular: regular rate and rhythym - ASA Status ASA Status: III ANE Anesthesia Plan Anesthesia Plan: general endotracheal anesthesia
[2018-03-20] MEDS ORDERED: REMIFENTANIL HCL 1 MG VIAL ONE (11:53)
[2018-03-20] MEDS ORDERED: PROPOFOL/EMULSION 500 MG/50 ML BOTTLE IV ONE (11:54)
[2018-03-20] MEDS ORDERED: fentaNYL 100 MCG/2 ML INJ ONE ×2 (11:54→13:48)
--- NOTE | 2018-03-20 11:55 | SOAPPROG ---
SOAP Progress Note Assessment/Plan: Assessment: 83 y/o M with RUQ pain and cholecystitis. Nonvisualized on HIDA scan. S: Increased pain last night. O: Alert Febrile last night RRR No increased WOB Abdomen: soft, ttp in RUQ, normoactive BS Plan: To OR today for lap keaton 03/20/18 11:54 Objective: Vital Signs Temp Pulse Resp BP Pulse Ox 37.6 C 103 H 18 112/57 L 91 L 03/20/18 11:29 03/20/18 11:49 03/20/18 11:49 03/20/18 11:49 03/20/18 11:49 Microbiology 03/19/18 00:30 Respiratory Panel (PCR) - Final Nasal, Sinus - Anaerobic Tube/Swab No Organism Detected By Pcr Laboratory Results 03/20/18 04:49 03/19/18 03/20/18 03/21/18 05:59 05:59 05:59 Intake Total 1370 480 Output Total 0 Balance 1370 480 ICD10 Worksheet Patient Problems: Problems Problem Status Onset Abdominal pain Acute Rectal bleeding Acute
[2018-03-20] MEDS: MEROPENEM 500 MG in NS 100 ML IV SCH (12:02)
[2018-03-20] MEDS ORDERED: DEXAMETHASONE 4 MG/ML VIAL ONE (12:10)
[2018-03-20] MEDS ORDERED: ONDANSETRON 4 MG/2 ML VIAL ONE ×2 (12:10→13:47)
[2018-03-20] MEDS ORDERED: METOCLOPRAMIDE 10 MG/2 ML VIAL ONE (12:10)
[2018-03-20] MEDS ORDERED: PHENYLEPHRINE HCL 100 MCG/ML SYR ONE (12:29)
[2018-03-20] MEDS ORDERED: ONDANSETRON 4 MG/2 ML VIAL IVP PRN (13:05)
[2018-03-20] MEDS ORDERED: fentaNYL 100 MCG/2 ML INJ IVP PRN (13:05)
[2018-03-20] MEDS ORDERED: HYDROmorphONE/DILAUDID 2 MG/ML INJ IVP PRN (13:05)
[2018-03-20] MEDS ORDERED: NALOXONE HCL 0.4 MG/ML INJ IVP PRN (13:05)
[2018-03-20] MEDS ORDERED: NEOSTIGMINE METHYLSULFATE 5 MG/5 ML SYR ONE (13:08)
[2018-03-20] MEDS ORDERED: GLYCOPYRROLATE 0.2 MG/1 ML VIAL ONE ×2 (13:08)
--- NOTE | 2018-03-20 13:34 | HOSPPROG ---
Hospitalist Progress Note Assessment/Plan: 83 yo M w esrd here w abd pain and now + HIDA scan c/w acute cholecystitis cholecystitis: lap keaton after HD today surgery following continue meropenem esrd: HD today htn: continue meds leukocytosis: explained by acute cholecystitis dispo: inpt, labs in a.m., post op care per surgery PT/OT Subjective: no cp or sob. no n/v Objective: Vital Signs Temp Pulse Resp BP Pulse Ox 37.6 C 103 H 18 112/57 L 91 L 03/20/18 11:29 03/20/18 11:49 03/20/18 11:49 03/20/18 11:49 03/20/18 11:49 Microbiology 03/19/18 00:30 Respiratory Panel (PCR) - Final Nasal, Sinus - Anaerobic Tube/Swab No Organism Detected By Pcr Laboratory Results 03/20/18 04:49 03/20/18 11:37 03/19/18 03/20/18 03/21/18 05:59 05:59 05:59 Intake Total 1370 480 Output Total 0 Balance 1370 480 - Physical Exam Constitutional: no apparent distress Eyes: PERRL, EOMI Ears, Nose, Mouth, Throat: moist mucous membranes, hearing normal Cardiovascular: regular rate and rhythym Respiratory: no respiratory distress, no rales or rhonchi Gastrointestinal: normoactive bowel sounds, tenderness (RUQ) Skin: warm Neurologic: AAOx3 Psychiatric: interacting appropriately, not anxious, not encephalopathic Lymph, Heme, Immunologic: No petechiae ICD10 Worksheet Patient Problems: Problems Problem Status Onset Abdominal pain Acute Rectal bleeding Acute
--- NOTE | 2018-03-20 13:36 | POSTOPPROG ---
Post Op Note Date of Operation: 03/20/18 Surgeon: Alexandro Degroot Sampler And Test Preparer: Mariama Anesthesiologist: Judit Anesthesia: GET(General Endotracheal) Pre-op Diagnosis: RUQ pain, cholecystitis Post-op Diagnosis: same Indication: same Procedure: Lap keaton Findings: Hydrops of the gallbladder Inf/Abcess present in the surg proc area at time of surgery?: Yes Depth: Organ Space EBL: Minimal Specimen(s): Gall bladder - permanent Cultures- aerobic/anaerobic
[2018-03-20] MEDS: ONDANSETRON 4 MG/2 ML VIAL IVP PRN (13:53)
--- NOTE | 2018-03-20 14:01 | POSTANESTH ---
Post Anesthetic Evaluation Cardiovascular Status: Normal, Stable Respiratory Status: Normal, Stable Level of Consciousness/Mental Status: Can Participate in Eval Pain Control: Adequate, Prn Tx Ordered Nausea/Vomiting Control: Inadeq, Add Tx Reqired Complications Possibly Related to Anesthesia: None Noted
[2018-03-20] MEDS: PANTOPRAZOLE SODIUM 40 MG VIAL IVP SCH ×2 (15:00→20:01)
[2018-03-20] MEDS: TAMSULOSIN HCL 0.4 MG CAP PO SCH ×2 (15:01→20:03)
--- NOTE | 2018-03-20 15:17 | ASMTCMCOM ---
CM Note CM Note Notes: 03/20/2018 Case Management Note Pt in surgery today for a lap cholecystectomy. Requested PT OT keily to assist with d/c planning. Case Management d/c poc: to be determined. Case Management to follow. Date Signed: 03/20/2018 03:17 PM Electronically Signed By:Wendy Paul RN
[2018-03-20] MEDS: FUROSEMIDE 40 MG TAB PO SCH (15:21)
[2018-03-20] MEDS: ALLOPURINOL 100 MG TAB PO SCH (15:21)
[2018-03-20] MEDS: FERROUS SULFATE 325 MG TAB PO SCH (15:21)
[2018-03-20] MEDS: SODIUM BICARBONATE 650 MG TAB PO SCH ×2 (15:21→20:02)
[2018-03-20] MEDS: CALCIUM CARBONATE 500 MG CHEWABLE TAB PO SCH ×2 (15:22→18:02)
[2018-03-20] MEDS: FLUTICASONE NASAL 120 SPRAYS/16 GM MDI EACHNARE SCH ×2 (15:42→20:04)
[2018-03-20] MEDS ORDERED: LIDOCAINE 1% *Not for Epidural 20 ML MDV ONE (17:17)
[2018-03-20] MEDS: ASPIRIN 81 MG CHEWABLE TAB PO SCH (20:02)
[2018-03-20] MEDS: ATORVASTATIN CALCIUM 20 MG TAB PO SCH (20:02)
[2018-03-20] MEDS: ASCORBIC ACID 500 MG TAB PO SCH (20:02)
[2018-03-20] MEDS: NIACIN ER 500 MG TAB.ER PO SCH (20:03)
[2018-03-20] MEDS: MULTIVITAMINS 1 EACH TAB PO SCH (20:03)
[2018-03-20] MEDS: VITAMIN B COMPLEX 1 EA CAP/TAB PO SCH (20:03)
[2018-03-20] MEDS: CHOLECALCIFEROL VIT D3 1,000 UNITS TAB PO SCH (20:03)
[2018-03-20] MEDS: NS 1,000 ML IV SCH (20:10)
[2018-03-20] MEDS ORDERED: PARICALCITOL 4 MCG PO SCH (21:00)
[2018-03-21 05:46] LABS: PLATELET COUNT 207 10^3/uL (150-400)
[2018-03-21] MEDS: FERROUS SULFATE 325 MG TAB PO SCH (08:39)
[2018-03-21] MEDS: ALLOPURINOL 100 MG TAB PO SCH (08:39)
[2018-03-21] MEDS: TAMSULOSIN HCL 0.4 MG CAP PO SCH ×2 (08:39→20:07)
[2018-03-21] MEDS: SODIUM BICARBONATE 650 MG TAB PO SCH ×2 (08:39→20:08)
[2018-03-21] MEDS: FLUTICASONE NASAL 120 SPRAYS/16 GM MDI EACHNARE SCH ×2 (08:40→20:08)
[2018-03-21] MEDS: CALCIUM CARBONATE 500 MG CHEWABLE TAB PO SCH ×3 (08:40→17:05)
[2018-03-21] MEDS: PANTOPRAZOLE SODIUM 40 MG VIAL IVP SCH ×2 (08:47→20:07)
--- NOTE | 2018-03-21 10:55 | SOAPPROG ---
SOAP Progress Note Assessment/Plan: Assessment: ESRD, TTS HD , next HD tomorrow abdominal pain, much better after cholecystectomy hydrops Gallbladder, path/cultures pending Plan: HD tomorrow await path/cultures encouraged PO when OK with surgery up and around pain control 03/21/18 10:52 Subjective: feels a lot better today abd pain significantly improved at bedside pt spirits good slept well up to chair hungry Objective: Vital Signs Temp Pulse Resp BP Pulse Ox 36.6 C 81 18 113/62 92 03/21/18 07:46 03/21/18 07:46 03/21/18 07:46 03/21/18 07:46 03/21/18 07:46 Microbiology 03/20/18 13:01 Gram Stain - Final Gallbladder - Eswab Laboratory Results 03/21/18 04:41 03/21/18 04:41 03/20/18 03/21/18 03/22/18 05:59 05:59 05:59 Intake Total 480 1175 Output Total 50 Balance 480 1125 Physical Exam - Physical Exam General Appearance: alert Neck: normal inspection Respiratory: No rales, No rhonchi, No wheezing Cardiac/Chest: edema, systolic murmur, No friction rub Abdomen: non-tender, other (mildly distended), No guarding Skin: warm/dry Neuro/Psych: alert, normal mood/affect, oriented x 3 ICD10 Worksheet Patient Problems: Problems Problem Status Onset Abdominal pain Acute Rectal bleeding Acute
[2018-03-21] MEDS: MEROPENEM 500 MG in NS 100 ML IV SCH (11:25)
[2018-03-21] MEDS: HYDROmorphONE/DILAUDID 6 MG/30 ML PCA IV PRN (12:12)
--- NOTE | 2018-03-21 13:01 | HOSPPROG ---
Hospitalist Progress Note Assessment/Plan: 83 yo M w esrd here w abd pain and now + HIDA scan c/w acute cholecystitis cholecystitis: lap keaton on 03/20 surgery following: post op care per surgery continue meropenem for now await cultures esrd: HD scheduled for tomorrow htn: continue meds leukocytosis: explained by acute cholecystitis dispo: inpt, labs in a.m., post op care per surgery PT/OT FEN: diet has been advanced. Will stop IVF Dispo: likely home tomorrow Subjective: no cp or sob. no n/v. mild abd pain. Objective: Vital Signs Temp Pulse Resp BP Pulse Ox 36.7 C 89 18 101/51 L 94 03/21/18 12:00 03/21/18 12:00 03/21/18 12:00 03/21/18 12:00 03/21/18 12:00 Microbiology 03/20/18 13:01 Gram Stain - Final Gallbladder - Eswab Laboratory Results 03/21/18 04:41 03/21/18 04:41 03/20/18 03/21/18 03/22/18 05:59 05:59 05:59 Intake Total 480 1175 Output Total 50 Balance 480 1125 - Physical Exam Constitutional: no apparent distress Eyes: PERRL, EOMI Ears, Nose, Mouth, Throat: moist mucous membranes, hearing normal Cardiovascular: regular rate and rhythym, No edema Respiratory: no respiratory distress, no rales or rhonchi, clear to auscultation Gastrointestinal: normoactive bowel sounds Skin: warm Neurologic: AAOx3 Psychiatric: interacting appropriately, not anxious, not encephalopathic Lymph, Heme, Immunologic: No petechiae ICD10 Worksheet Patient Problems: Problems Problem Status Onset Abdominal pain Acute Rectal bleeding Acute
[2018-03-21] MEDS: FUROSEMIDE 40 MG TAB PO SCH (17:05)
[2018-03-21] MEDS: NIACIN ER 500 MG TAB.ER PO SCH (20:07)
[2018-03-21] MEDS: CHOLECALCIFEROL VIT D3 1,000 UNITS TAB PO SCH (20:07)
[2018-03-21] MEDS: ASCORBIC ACID 500 MG TAB PO SCH (20:07)
[2018-03-21] MEDS: MULTIVITAMINS 1 EACH TAB PO SCH (20:07)
[2018-03-21] MEDS: ATORVASTATIN CALCIUM 20 MG TAB PO SCH (20:07)
[2018-03-21] MEDS: ASPIRIN 81 MG CHEWABLE TAB PO SCH (20:07)
[2018-03-21] MEDS: VITAMIN B COMPLEX 1 EA CAP/TAB PO SCH (20:08)
[2018-03-22 05:40] LABS: PLATELET COUNT 232 10^3/uL (150-400)
[2018-03-22] MEDS: ALLOPURINOL 100 MG TAB PO SCH (12:08)
[2018-03-22] MEDS: CALCIUM CARBONATE 500 MG CHEWABLE TAB PO SCH ×3 (12:09→17:43)
[2018-03-22] MEDS: FERROUS SULFATE 325 MG TAB PO SCH (12:09)
[2018-03-22] MEDS: TAMSULOSIN HCL 0.4 MG CAP PO SCH ×2 (12:09→20:31)
[2018-03-22] MEDS: SODIUM BICARBONATE 650 MG TAB PO SCH ×2 (12:09→20:30)
[2018-03-22] MEDS: PANTOPRAZOLE SODIUM 40 MG VIAL IVP SCH ×2 (12:12→20:30)
[2018-03-22] MEDS: FLUTICASONE NASAL 120 SPRAYS/16 GM MDI EACHNARE SCH ×2 (12:16→20:31)
[2018-03-22] MEDS: MEROPENEM 500 MG in NS 100 ML IV SCH (12:54)
--- NOTE | 2018-03-22 13:45 | HOSPPROG ---
Hospitalist Progress Note Assessment/Plan: 83 yo M w esrd here w abd pain and now + HIDA scan c/w acute cholecystitis cholecystitis: lap keaton on 03/20. Cx show Klebsiella surgery following: post op care per surgery continue meropenem for now. If decision is made to continue abx, can change to Levaquin, Bactrim, or Cefazolin. esrd: HD today htn: continue meds leukocytosis: explained by acute cholecystitis dispo: inpt, labs in a.m., post op care per surgery PT/OT FEN: tolerating diet Dispo: likely home today pending surgical clearance and antibiotic decision Subjective: no cp or sob. seen at HD. no n/v. tolerating PO. No BM yet Objective: Vital Signs Temp Pulse Resp BP Pulse Ox 36.8 C 95 16 147/78 H 92 03/22/18 11:48 03/22/18 11:48 03/22/18 11:48 03/22/18 11:48 03/22/18 11:48 Microbiology 03/20/18 13:01 Gram Stain - Final Gallbladder - Eswab Laboratory Results 03/22/18 04:29 03/22/18 04:29 03/21/18 03/22/18 03/23/18 05:59 05:59 05:59 Intake Total 1175 1432 Output Total 50 Balance 1125 1432 - Physical Exam Constitutional: no apparent distress Eyes: PERRL Ears, Nose, Mouth, Throat: moist mucous membranes, hearing normal Cardiovascular: regular rate and rhythym, No edema Respiratory: no respiratory distress, no rales or rhonchi, clear to auscultation Gastrointestinal: normoactive bowel sounds Skin: warm Neurologic: AAOx3 Psychiatric: interacting appropriately, not anxious, not encephalopathic Lymph, Heme, Immunologic: No petechiae ICD10 Worksheet Patient Problems: Problems Problem Status Onset Abdominal pain Acute Rectal bleeding Acute
[2018-03-22] MEDS: FUROSEMIDE 40 MG TAB PO SCH (15:59)
--- NOTE | 2018-03-22 16:23 | SOAPPROG ---
NARINDER Progress Note Assessment/Plan: Assessment: 83 MALE WITH SIGNS AND SYMPTOMS OF ACALCULOUS CHOLECYSTITIS LFTs OK HIDA PENDING WBC 11K Plan:FU EVAL IN AM / MAY NEED DIALYSIS PRIOR TO ANY LAP TABITHA 03/18/18 21:16 03/19/18 23:08 AFEBRILE THE CONTINUES TO HAVE SIGNIFICANT RIGHT UPPER QUADRANT PAIN/HIDA SCAN WAS NON VIS/LFTS ARE NORMAL/WBC 10 K RISKS AND OPTIONS FULLY DISCUSSED FINDINGS CONSISTENT WITH ACUTE CHOLECYSTITIS PLAN PROCEED WITH LAP CHOLY IN THE A.M. HEENT NONICTERIC/CHEST CLEAR/COR REGULAR TACHYCARDIA/ABDOMEN SOFT, DISTENDED BUT VERY TENDER IN THE RIGHT UPPER QUADRANT 03/22/18 16:21 PATIENT ON DIALYSIS/AFEBRILE/VITAL SIGNS STABLE/DECREASED PAIN/EATING BETTER VITAL SIGNS STABLE/LAB STABLE READY FOR HOME FROM GENERAL SURGERY STANDPOINT HOWEVER HE WILL NEED CONTINUING ANTIBIOTIC COVERAGE EASED ON ORAL BASIS OR IV HE HAD DEFINITE GROSS PURULENCE IN HIS GALLBLADDER WHICH WAS PROBABLY RUPTURED. I WOULD RECOMMEND HIM GOING HOME ON AUGMENTIN OR LEVAQUIN AND FLAGYL Objective: Vital Signs Temp Pulse Resp BP Pulse Ox 36.4 C 98 16 102/69 95 03/22/18 15:38 03/22/18 15:38 03/22/18 15:38 03/22/18 15:38 03/22/18 15:38 Microbiology 03/20/18 13:01 Gram Stain - Final Gallbladder - Eswab Laboratory Results 03/22/18 04:29 03/22/18 04:29 03/21/18 03/22/18 03/23/18 05:59 05:59 05:59 Intake Total 1175 1432 Output Total 50 Balance 1125 1432 ICD10 Worksheet Patient Problems: Problems Problem Status Onset Abdominal pain Acute Rectal bleeding Acute
--- NOTE | 2018-03-22 19:47 | SOAPPROG ---
SOAP Progress Note Assessment/Plan: Assessment: - HD today uneventful - Continue HD TTS *Hgb downtrending over time. Will check iron studies with AM labs -Still awaiting final decisions regarding antibiotics prior to discharge -Recommended 1.5L fluid restriction Subjective: Feeling fine. Dialysis went well today. Denies shortness of breath. Does report swelling of his legs. Objective: Vital Signs Temp Pulse Resp BP Pulse Ox 36.4 C 98 16 102/69 95 03/22/18 15:38 03/22/18 15:38 03/22/18 15:38 03/22/18 15:38 03/22/18 15:38 Microbiology 03/20/18 13:01 Gram Stain - Final Gallbladder - Eswab Laboratory Results 03/22/18 04:29 03/22/18 04:29 03/21/18 03/22/18 03/23/18 05:59 05:59 05:59 Intake Total 1175 1432 100 Output Total 50 Balance 1125 1432 100 General Appearance: alert Neck: normal inspection Respiratory: No rales, No rhonchi, No wheezing Cardiac/Chest: edema, systolic murmur, No friction rub Abdomen: non-tender, other (mildly distended), No guarding Skin: warm/dry Neuro/Psych: alert, normal mood/affect, oriented x 3 Extrem: distal LUE AVF ICD10 Worksheet Patient Problems: Problems Problem Status Onset Abdominal pain Acute Rectal bleeding Acute
[2018-03-22] MEDS ORDERED: LIDOCAINE 1% *Not for Epidural 20 ML MDV ONE (19:50)
[2018-03-22] MEDS: CHOLECALCIFEROL VIT D3 1,000 UNITS TAB PO SCH (20:30)
[2018-03-22] MEDS: ASPIRIN 81 MG CHEWABLE TAB PO SCH (20:30)
[2018-03-22] MEDS: ATORVASTATIN CALCIUM 20 MG TAB PO SCH (20:30)
[2018-03-22] MEDS: MULTIVITAMINS 1 EACH TAB PO SCH (20:30)
[2018-03-22] MEDS: ASCORBIC ACID 500 MG TAB PO SCH (20:30)
[2018-03-22] MEDS: VITAMIN B COMPLEX 1 EA CAP/TAB PO SCH (20:31)
[2018-03-22] MEDS: NIACIN ER 500 MG TAB.ER PO SCH (20:31)
[2018-03-22] MEDS: ACETAMINOPHEN 500 MG TAB PO PRN (21:57)
[2018-03-23] MEDS ORDERED: ADENOSINE 6 MG/2 ML VIAL IVP ONE (03:42)
--- NOTE | 2018-03-23 04:02 | HOSPPROG ---
Hospitalist Progress Note Assessment/Plan: Hospitalist Night Float Note Paged by RN reporting patient woke up with sleep complaining of palpitations. denies chest pain or dyspnea. Tele showing sinus tach in the 130s. stat ekg noted for SVT. no previous history of arrhythmia per patient. hx of CAD and stenting followed by Dr. Sue. Patient reports he was previously beta blockers but bps meds discontinued due to development of hypotension with HD. 6mg adenosine given. HR and rhythm monitored decreased briefly into 60s/70s in apparent afib rhythm and subsequently returned rate 120s-130s. patient requires replacement IV right AC. restricted limb left. palpitations noted to be improved by patient. Transfer to PCU. pt c/o side effects of adenosine. consider metoprolol IV when access re-established. Objective: Vital Signs Temp Pulse Resp BP Pulse Ox 36.9 C 134 H 20 107/68 93 03/23/18 03:01 03/23/18 03:01 03/23/18 03:01 03/23/18 03:01 03/23/18 03:01 Microbiology 03/20/18 13:01 Gram Stain - Final Gallbladder - Eswab Laboratory Results 03/22/18 04:29 03/22/18 04:29 03/21/18 03/22/18 03/23/18 05:59 05:59 05:59 Intake Total 1175 1432 100 Output Total 50 Balance 1125 1432 100 ICD10 Worksheet Patient Problems: Problems Problem Status Onset Abdominal pain Acute Rectal bleeding Acute
[2018-03-23] MEDS ORDERED: METOPROLOL TARTRATE 5 MG/5 ML INJ IVP ONE (05:08)
[2018-03-23] MEDS ORDERED: MAGNESIUM OXIDE 400 MG TAB PO ONE (05:10)
[2018-03-23] MEDS ORDERED: POTASSIUM CL 20 MEQ TAB PO ONE (05:10)
[2018-03-23] MEDS: CALCIUM CARBONATE 500 MG CHEWABLE TAB PO SCH ×2 (09:23→11:57)
[2018-03-23] MEDS: PANTOPRAZOLE SODIUM 40 MG VIAL IVP SCH (09:23)
[2018-03-23] MEDS: TAMSULOSIN HCL 0.4 MG CAP PO SCH (09:23)
[2018-03-23] MEDS: ALLOPURINOL 100 MG TAB PO SCH (09:23)
[2018-03-23] MEDS: SODIUM BICARBONATE 650 MG TAB PO SCH (09:23)
[2018-03-23] MEDS: FERROUS SULFATE 325 MG TAB PO SCH (09:23)
[2018-03-23] MEDS ORDERED: FUROSEMIDE 20 MG TAB PO ONE (10:00)
--- NOTE | 2018-03-23 10:41 | CPEKG ---
Test Reason : OPEN Blood Pressure : / mmHG Vent. Rate : 144 BPM Atrial Rate : 000 BPM P-R Int : 244 ms QRS Dur : 097 ms QT Int : 304 ms P-R-T Axes : 000 -53 034 degrees QTc Int : 471 ms Supraventricular tachycardia Inferior infarct, old Confirmed by Elliott Shepard ([id number] on 03/23/2018 10:41:18 AM Referred By: Steve Montes Confirmed By:Elliott Shepard
--- NOTE | 2018-03-23 10:54 | PDCARCONS ---
Cardiology Consult Reason for Consult: Supraventricular tachycardia. Chief Complaint: Palpitations, dyspnea. Requesting Physician: Dr. Ruperto Worthy. History of Present Illness: This is an 83-year-old male typically followed by Dr. Brian Sue. His cardiovascular history is significant for coronary artery disease with a distant history of RCA stenting. Risk factors include end-stage renal disease currently on hemodialysis, hypertension and hyperlipidemia. He has no arrhythmia history. He is currently hospitalized following performance of an urgent cholecystectomy which was performed on the March 20. This was performed without complications and he has been recovering without any difficulties. Last evening he got up to use the bathroom. Apparently he developed the abrupt sensation of dyspnea associated with palpitations. He felt that his heart was beating "a mile a minute." On telemetry there was an indication of a long RP tachycardia. This appeared to be self-limited lasting for only a few minutes. Was not treated with any medications. In talking to him about this he has not had similar symptoms in the past. He notes no history of chest discomfort, chest pain or pressure. His heart rate has been fairly consistently elevated since admission currently 90-110 beats per minute range. This is unusual for him. He states his heart rates are usually in the 60s. Today states he feels back to normal. He denies dyspnea and chest discomfort. He has not had any unilateral lower extremity edema however he has had bilateral leg swelling responding to IV Lasix. He notes no orthopnea or PND. He has no history of DVT or PE. Denies fever, chills and sweats. History Information - Allergies/Home Medication List Allergies/Adverse Reactions: adhesive Allergy (Mild, Verified 03/18/18 16:36) Rash Home Medications: Allopurinol [Allopurinol 100 MG (*)] 100 mg PO DAILY 09/21/15 [Last Taken ] Aspirin [Aspirin 81mg (*)] 81 mg PO HS 09/21/15 [Last Taken 03/13/18] Atorvastatin Calcium [Lipitor 20 mg (*)] 20 mg PO HS 09/21/15 [Last Taken ] Herbals/Supplements -Info Only 1 ea PO DAILY 09/21/15 [Last Taken 11/29/17] Multivitamins [Multivitamin (*)] 1 each PO HS 09/21/15 [Last Taken 03/17/18] Niacin ER [Niaspan 500 mg (*)] 500 mg PO HS 09/21/15 [Last Taken 03/13/18] Paricalcitol [Zemplar] 4 mcg PO MOTH@09/21/15 [Last Taken 03/13/18] Ferrous Sulfate [Ferrous Sulf 325 MG (*)] 325 mg PO DAILY 11/29/17 [Last Taken 03/18/18] Sodium Bicarbonate [Na Bicarb] 1,300 mg PO DAILY 11/29/17 [Last Taken 03/18/18] Tamsulosin HCl [Flomax 0.4 MG (*)] 0.4 mg PO BID 11/29/17 [Last Taken 03/18/18 09:00] Ascorbic Acid [Vitamin C 500 mg (*)] 500 mg PO HS 03/14/18 [Last Taken 03/17/18] Calcium Carbonate [Tums 500MG (*)] 1,000 mg PO 03/14/18 [Last Taken ] Calcium Carbonate [Tums 500MG (*)] 500 mg PO DAILY@03/14/18 [Last Taken 03/13] Cholecalciferol Vit D3 [Vitamin D3 (*)] 1,000 units PO HS 03/14/18 [Last Taken 03/17/18] Fluticasone Nasal [Flonase Nasal [place]] 1 sprays EACHNARE BID 03/14/18 [Last Taken 03/13/18 21:00] Ondansetron Odt [Zofran Odt 4 mg (*)] 4 mg PO BID PRN 03/14/18 [Last Taken 03/14] Sodium Bicarbonate [Na Bicarb] 1,950 mg PO HS 03/14/18 [Last Taken 03/17/18] Vitamin B Complex [Vitamin B Complex (OTC)] 1 each PO HS 03/14/18 [Last Taken ] Furosemide [Lasix 20 MG (*)] 40 mg PO DAILY16 03/18/18 [Last Taken Unknown] I have personally reviewed and updated: family history, medical history, social history, surgical history Past Medical History: Coronary artery disease with previous RCA stenting, obesity, cholecystitis, end- stage renal disease currently on hemodialysis, hypertension, hyperlipidemia. - Surgical History Additional surgical history: Currently recovering from cholecystectomy. - Family History Positive for: non-pertinent - Social History Smoking Status: Never smoked Alcohol Use: None Drug Use: None Physical Exam Physical Exam: Temp Pulse Resp BP Pulse Ox 37.0 C 81 18 105/64 93 03/23/18 07:10 03/23/18 07:10 03/23/18 07:10 03/23/18 07:10 03/23/18 07:10 O2 (L/minute) 95 FIO2 (%) 1 Constitutional: no apparent distress, appears nourished, not in pain Eyes: PERRL, anicteric sclera, EOMI Ears, Nose, Mouth, Throat: moist mucous membranes, hearing normal, ears appear normal, no oral mucosal ulcers Cardiovascular: regular rate and rhythym, systolic murmur (2/6 mid peaking systolic ejection murmur, 4th heart sound), No edema Respiratory: no respiratory distress, no rales or rhonchi, clear to auscultation Gastrointestinal: normoactive bowel sounds, soft, non-tender abdomen, no palpable masses Genitourinary: no bladder fullness, no bladder tenderness Skin: warm, normal color, no rashes or abrasions, no fluctuance, no induration, No mottled Musculoskeletal: full muscle strength, no muscle tenderness, normal joint ROM, no joint effusions Psychiatric: interacting appropriately, not anxious, not encephalopathic, thought process linear Lymph, Heme, Immunologic: no cervical LAD, no supraclavicular LAD Lab and Imaging 03/23/18 04:05 03/23/18 04:05 WBC 9.94 10^3/uL (3.80-9.50) H 03/22/18 04:29 RBC 2.65 10^6/uL (4.40-6.38) L 03/22/18 04:29 Hgb 8.5 g/dL (13.7-17.5) L 03/23/18 04:05 Hct 25.3 % (40.0-51.0) L 03/23/18 04:05 MCV 99.2 fL (81.5-99.8) 03/22/18 04:29 MCH 32.5 pg (27.9-34.1) 03/22/18 04:29 MCHC 32.7 g/dL (32.4-36.7) 03/22/18 04:29 RDW 14.1 % (11.5-15.2) 03/22/18 04:29 Plt Count 232 10^3/uL (150-400) 03/22/18 04:29 MPV 9.2 fL (8.7-11.7) 03/22/18 04:29 Neut % (Auto) Not Reported 03/22/18 04:29 Lymph % (Auto) Not Reported 03/22/18 04:29 Cassia % (Auto) Not Reported 03/22/18 04:29 Eos % (Auto) Not Reported 03/22/18 04:29 Baso % (Auto) Not Reported 03/22/18 04:29 Nucleat RBC Rel Count Not Reported 03/22/18 04:29 Absolute Neuts (auto) Not Reported 03/22/18 04:29 Absolute Lymphs (auto) Not Reported 03/22/18 04:29 Absolute Monos (auto) Not Reported 03/22/18 04:29 Absolute Eos (auto) Not Reported 03/22/18 04:29 Absolute Basos (auto) Not Reported 03/22/18 04:29 Absolute Nucleated RBC Not Reported 03/22/18 04:29 Immature Gran % Not Reported 03/22/18 04:29 Seg Neutrophils % 85.0 % 03/22/18 04:29 Band Neutrophils % 0.0 % 03/22/18 04:29 Lymphocytes % 4.0 % 03/22/18 04:29 Monocytes % 8.0 % 03/22/18 04:29 Eosinophils % 1.0 % 03/22/18 04:29 Basophils % 0.0 % 03/22/18 04:29 Metamyelocytes % 0.0 % 03/22/18 04:29 Myelocytes % 1.0 % 03/22/18 04:29 Promyelocytes % 1.0 % 03/22/18 04:29 Blast Cells % 0.0 % 03/22/18 04:29 Immature Gran # Not Reported 03/22/18 04:29 Absolute Seg Neuts 8.45 10^3/uL (1.70-6.50) H 03/22/18 04:29 Absolute Band Neuts 0.00 10^3/uL (0.00-0.70) 03/22/18 04:29 Absolute Lymphocytes 0.40 10^3/uL (1.00-3.00) L 03/22/18 04:29 Absolute Monocytes 0.80 10^3/uL (0.30-0.80) 03/22/18 04:29 Absolute Eosinophils 0.10 10^3/uL (0.03-0.40) 03/22/18 04:29 Absolute Basophils 0.00 10^3/uL (0.02-0.10) L 03/22/18 04:29 Absolute Metamyelocyte 0.00 10^3/mL (0.00-0.00) 03/22/18 04:29 Absolute Myelocytes 0.10 10^3/mL (0.00-0.00) H 03/22/18 04:29 Absolute Promyelocytes 0.10 10^3/uL (0.00-0.00) H 03/22/18 04:29 Absolute Plasma Cells 0.00 10^3/uL (0.00-0.00) 03/22/18 04:29 Nucleated RBCs 0 /100 WBC (0-0) 03/22/18 04:29 Absolute Blast Cells 0.00 10^3/uL (0.00-0.00) 03/22/18 04:29 Plasma Cells % 0.0 % 03/22/18 04:29 Platelet Estimate ADEQUATE (ADEQ) 03/22/18 04:29 Polychromasia 1+ H 03/18/18 17:45 Hypochromasia 1+ H 03/21/18 04:41 Tear Drop Cells 1+ H 03/18/18 17:45 Smear Review By Surekha KOCH MD 03/22/18 04:29 Sodium 138 mEq/L (135-145) 03/23/18 04:05 Potassium 3.3 mEq/L (3.5-5.2) L 03/23/18 04:05 Chloride 107 mEq/L (97-110) 03/23/18 04:05 Carbon Dioxide 21 mEq/l (22-31) L 03/23/18 04:05 Anion Gap 10 mEq/L (6-14) 03/23/18 04:05 BUN 35 mg/dL (7-23) H 03/23/18 04:05 Creatinine 4.2 mg/dL (0.7-1.3) H 03/23/18 04:05 Estimated GFR 14 03/23/18 04:05 Glucose 97 mg/dL (70-100) 03/23/18 04:05 Calcium 7.3 mg/dL (8.5-10.4) L 03/23/18 04:05 Phosphorus 6.0 mg/dL (2.5-4.5) H 03/21/18 04:41 Magnesium 1.7 mg/dL (1.6-2.3) 03/23/18 04:05 Iron 31.0 mcg/dL (49.0-199.0) L 03/23/18 04:05 TIBC 158 ug/dL (260-490) L 03/23/18 04:05 Iron Saturation 20 % (20-55) 03/23/18 04:05 Ferritin 938.0 ng/mL (17.9-464.0) H 03/23/18 04:05 Total Bilirubin 0.7 mg/dL (0.1-1.4) 03/21/18 04:41 Conjugated Bilirubin 0.6 mg/dL (0.0-0.5) H 03/18/18 17:45 Unconjugated Bilirubin 0.5 mg/dL (0.0-1.1) 03/18/18 17:45 AST 79 IU/L (17-59) H 03/21/18 04:41 ALT 59 IU/L (21-72) 03/21/18 04:41 Alkaline Phosphatase 77 IU/L (38-126) 03/21/18 04:41 Total Protein 5.1 g/dL (6.3-8.2) L 03/21/18 04:41 Albumin 2.8 g/dL (3.5-5.0) L 03/21/18 04:41 Lipase 45 IU/L (23-300) 03/18/18 17:45 TSH 9.480 uIU/mL (0.465-4.680) H 03/23/18 04:05 A/P Assessment: 1. SVT. This is most likely an episode of self-limited atrial flutter with 2-1 conduction. He had symptoms of palpitations associated with dyspnea that correspond to the development of this arrhythmia. This represents his initial presentation. He has no history of structural heart disease. This may be situational related to his recent abdominal surgery. TSH was checked and was noted to be elevated therefore not likely contributing to this arrhythmia presentation. Pulmonary embolism is on the differential diagnosis especially given the fact that he has had recent surgery and had symptoms of dyspnea. 2. Coronary artery disease with previous RCA stenting. This appears to be quiescent. 3. End-stage renal disease. He receives hemodialysis regularly. He has been dialyzed during this hospitalization. He appears to be well compensated. 4. Anemia. This is appears to be stable following his recent abdominal surgery. Plan: This represents a highly symptomatic short-lived event. The exact trigger is not entirely clear. Given his postoperative state and symptoms of dyspnea pulmonary embolism is on the differential diagnosis. I do think it would be worthwhile to proceed with either a CTA of the chest or V/Q scan to rule out PE. If that is negative I think that he can be discharged home with close outpatient follow-up in Cardiology. He and I talked about potential management options. Given the fact that he has had a single event with no prior history I do not think that he requires long-term therapy with AV bobby agents especially given how symptomatic he was. I do think it will be worthwhile for him to take home a prescription for metoprolol 25 mg twice daily that he can use if he should have recurrent symptoms. He can follow up with Dr. Sue in the outpatient setting to determine if additional treatment or diagnostic studies might be warranted. Review of Systems Review of Systems: - Review of Systems Constitutional: no symptoms reported EENTM: no symptoms reported Respiratory: see HPI Cardiac: see HPI Gastrointestinal/Abdominal: abdominal pain Genitourinary: no symptoms Musculoskelatal: no symptoms Skin: no symptoms Neurological: no symptoms Hematologic/Lymphatic: no symptoms reported Immunologic/allergic: no symptoms reported All Other Systems: Reviewed and Negative
[2018-03-23] MEDS ORDERED: PROTOCOL POTASSIUM 1 DOSE MISC PRN (11:09)
[2018-03-23] MEDS ORDERED: POTASSIUM CL 10 MEQ TAB PO ONE (11:10)
[2018-03-23] MEDS: MEROPENEM 500 MG in NS 100 ML IV SCH (11:58)
--- NOTE | 2018-03-23 12:08 | ECHO ---
[email or web address] [address] [address] Main: [phone] Fax: Transthoracic Echocardiogram Name: TYLER GENAO MR#: [id number] Study Date: 03/23/2018 Study Time: 10:32 AM Date of : 1935 Age: 83 year(s) Height: 190.5 cm (75 in.) Weight: 105.23 kg (232 lb.) BSA: 2.34 m2 Gender: Male Examination: Echo Indication: edema, arrhythmia Image Quality: Adequate Contrast: Requested by: Lore De Leon BP: 105 mmHg/64 mmHg Heart Rate: Rhythm: Indication: edema, arrhythmia Procedure Staff Housing Grant Analyst: Nelida Kingston [facility] [place] Reading Physician: Elliott Shepard MD Requesting Provider: Conclusions: Normal size left ventricle. Mild to moderate LVH. EF is 74 %. No regional wall motion abnormality. Normal RV function. There is no mitral valve regurgitation. No mitral stenosis is present. The aortic valve is tri-leaflet. There is no significant aortic valve regurgitation. No aortic valve stenosis is present. There is no significant tricuspid valve regurgitation. Pulmonary artery pressure is not obtained due to inadequate TR jet. No pericardial effusion. Measurements: Chambers Valvular Assessment AV/MV Valvular Assessment TV/PV Normal Normal Normal Name Value Range Name Value Range Name Value Range Ao Abbey (MM): 3.6 cm (2.2 cm-3.7 AV Vmax: 1.34 m/s (1 m/s-1.7 PV Vmax: 1.18 m/s (0.6 m/s-0.9 cm) m/s) m/s) IVSd (2D): 1.4 cm (0.6 cm-1.1 AV maxP mmHg ( - ) PV PGmax: 6 mmHg ( - ) cm) LVOT Vmax: 0.94 m/s (0.7 m/s-1.1 LVDd (2D): 4.4 cm (4.2 cm-5.9 m/s) cm) EDMAR (Vmax): 2.9 cm2 ( - ) LVDs (2D): 2.8 cm (2.1 cm-4 cm) LVPWd (2D): 1.2 cm (0.6 cm-1 cm) LVOTd 2.3 cm 2.3 cm mm LVEF (BP): 74 % (>=55 %) Patient: TYLER GENAO Study Date: 03/23/2018 Page 1 of 2 10:32 AM RVDd(2D): 3.0 cm (1.9 cm-3.8 cmmm) Continued Measurements: Chambers Valvular Assessment AV/MV Name Value Name Value LADs: 4.6 cm MV E' Septal: 0.06 m/s LADs Lon.7 cm LA Area: 20.8 cm2 LA Volume: 57 ml LA Volume Index: 24.4 ml/m2 TAPSE: 2.2 cm RA Area: 11.7 cm2 Additional Vessels Name Value Ao Ascendin.6 cm Findings: Left Ventricle: Normal size left ventricle. Mild to moderate LVH. Normal global systolic LV function. EF is 74 %. No regional wall motion abnormality. Unable to assess diastolic dysfunction. Right Ventricle: Normal size right ventricle. Normal RV function. Left Atrium: The left atrium is normal in size. Right Atrium: The right atrium is normal in size. Mitral Valve: There is mild thickening of the mitral valve leaflets. Mild mitral annular calcification. There is no mitral valve regurgitation. No mitral stenosis is present. Aortic Valve: The aortic valve is tri-leaflet. Minimal aortic cusp calcification is noted. There is no significant aortic valve regurgitation. No aortic valve stenosis is present. Tricuspid Valve: The tricuspid valve is normal in appearance and function. There is no significant tricuspid valve regurgitation. Pulmonary artery pressure is not obtained due to inadequate TR jet. Pulmonic Valve: Pulmonary valve not well visualized. There is no pulmonic regurgitation seen. Aorta: Normal size aortic root measuring 3.6 cm. Normal size ascending aorta measuring 3.6 cm. IVC: Normal size and course of the IVC. Pericardium: No pericardial effusion. (No Signature Object) Patient: TYLER GENAO Study Date: 03/23/2018 Page 2 of 2 10:32 AM [id number]
[2018-03-23 12:30] VITALS: BP 133/71
--- NOTE | 2018-03-23 12:36 | SOAPPROG ---
SOAP Progress Note Assessment/Plan: Assessment: ESRD - Continue HD TTS -Recommended 1.5L fluid restriction Anemia *Hgb downtrending over time. -iron sat 20% -Will start Epo 5k units q week on 03/23 Acalculous cholecystitis- s/p lap keaton 03/20 -Still awaiting final decisions regarding antibiotics prior to discharge Arrhythmia- cards consulted Subjective: Patient reports shortness of breath and palpitations overnight. Per notes, SVT. Received adenosine. Cards consulted. Patient reports HR still faster than normal but overall feeling ok. No shortness of breath currently. He is working on the fluid restriction. Objective: Vital Signs Temp Pulse Resp BP Pulse Ox 36.6 C 84 18 133/71 H 95 03/23/18 12:00 03/23/18 12:00 03/23/18 12:00 03/23/18 12:00 03/23/18 12:00 Microbiology 03/20/18 13:01 Gram Stain - Final Gallbladder - Eswab Laboratory Results 03/23/18 04:05 03/23/18 04:05 03/22/18 03/23/18 03/24/18 05:59 05:59 05:59 Intake Total 1432 100 Balance 1432 100 General Appearance: alert Neck: normal inspection Respiratory: No rales, No rhonchi, No wheezing Cardiac/Chest: 1+ edema, systolic murmur, No friction rub Abdomen: non-tender, other (mildly distended), No guarding Skin: warm/dry Neuro/Psych: alert, normal mood/affect, oriented x 3 Extrem: distal LUE AVF with good bruit and thrill ICD10 Worksheet Patient Problems: Problems Problem Status Onset Abdominal pain Acute Rectal bleeding Acute
[2018-03-23] MEDS ORDERED: EPOETIN ALFA 10,000 UNIT/ML VIAL SC SCH (12:45)
--- NOTE | 2018-03-23 13:45 | SOAPPROG ---
NARINDER Progress Note Assessment/Plan: Assessment: 83 MALE WITH SIGNS AND SYMPTOMS OF ACALCULOUS CHOLECYSTITIS LFTs OK HIDA PENDING WBC 11K Plan:FU EVAL IN AM / MAY NEED DIALYSIS PRIOR TO ANY LAP TABITHA 03/18/18 21:16 03/19/18 23:08 AFEBRILE THE CONTINUES TO HAVE SIGNIFICANT RIGHT UPPER QUADRANT PAIN/HIDA SCAN WAS NON VIS/LFTS ARE NORMAL/WBC 10 K RISKS AND OPTIONS FULLY DISCUSSED FINDINGS CONSISTENT WITH ACUTE CHOLECYSTITIS PLAN PROCEED WITH LAP CHOLY IN THE A.M. HEENT NONICTERIC/CHEST CLEAR/COR REGULAR TACHYCARDIA/ABDOMEN SOFT, DISTENDED BUT VERY TENDER IN THE RIGHT UPPER QUADRANT 03/22/18 16:21 PATIENT ON DIALYSIS/AFEBRILE/VITAL SIGNS STABLE/DECREASED PAIN/EATING BETTER VITAL SIGNS STABLE/LAB STABLE READY FOR HOME FROM GENERAL SURGERY STANDPOINT HOWEVER HE WILL NEED CONTINUING ANTIBIOTIC COVERAGE EASED ON ORAL BASIS OR IV HE HAD DEFINITE GROSS PURULENCE IN HIS GALLBLADDER WHICH WAS PROBABLY RUPTURED. I WOULD RECOMMEND HIM GOING HOME ON AUGMENTIN OR LEVAQUIN AND FLAGYL 03/23/18 13:43 doing well SVT resolved/ wounds ok/ afebrile/ nonicteric/ abd soft with bs home on oral abx/ cultured showed klebsiella Objective: Vital Signs Temp Pulse Resp BP Pulse Ox 36.6 C 84 18 133/71 H 95 03/23/18 12:00 03/23/18 12:00 03/23/18 12:00 03/23/18 12:00 03/23/18 12:00 Microbiology 03/20/18 13:01 Gram Stain - Final Gallbladder - Eswab Laboratory Results 03/23/18 04:05 03/23/18 04:05 03/22/18 03/23/18 03/24/18 05:59 05:59 05:59 Intake Total 1432 100 Balance 1432 100 ICD10 Worksheet Patient Problems: Problems Problem Status Onset Abdominal pain Acute Rectal bleeding Acute
--- NOTE | 2018-03-23 14:49 | PDDCSUM ---
Discharge Summary Discharge Summary: 83 yo M w esrd admitted with abd pain and now + HIDA scan c/w acute cholecystitis. Dr. Degroot performed Lap Keaton. He was continued on abx. On the evening prior to discharge he had an episode of transient SVT v 2:1 flutter. Cardiology was consulted and they recommended ruling out P.E. A CTA of the chest was ordered, but hospital protocol does not allow of the CTA of the chest to be done on ESRD patients without HD planned within a 24hr period. His next HD is on Saturday. Therefore a V/Q scan was ordered. This could not be arranged until 6 p.m. and the pt did not want to wait. Since his transient event around 0300, he has remained stable and had no recurrence. The pt was encouraged to wait until 6 p.m., but since he felt better and he reported that he could arrange for a CTA of the chest tomorrow via his PCP, he was discharged instead of discharging AMA. He will continue on abx on Augmentin for 7 more days He will f/u with his PCP tomorrow with Surgery as planned DDX: cholecystitis: lap keaton on 03/20. Cx show Klebsiella esrd: HD T// htn: continue meds leukocytosis: explained by acute cholecystitis hypothyroidism: repeat TSH as an op. TSH 9.4 here. Did not start meds given recent tachycardia dispo: inpt, labs in a.m., post op care per surgery Exam: NAD AAOX3 RRR CTA B SOFT, ND MEDS: SEE MED REC F/U: PER ABOVE TOTAL TIME SPENT ON D/C IS 35 MINS
[2018-03-23] MEDS: FLUTICASONE NASAL 120 SPRAYS/16 GM MDI EACHNARE SCH (15:21)
[2018-03-23] MEDS: FUROSEMIDE 40 MG TAB PO SCH (15:46)
== END 2018-03-23 15:58 | disposition home or self-care (01) | DRG 417 ==
LOC: F3E 20:40 → F2W 03-23 04:47
PROVIDERS: ADMIT Family Medicine; ATTEND Family Medicine
PROC: 5A1D70Z Performance of Urinary Filtration, Intermittent, Less than 6 Hours Per Day (ICD-10-PCS; 2018-03-20)
PROC: 0FT44ZZ Resection of Gallbladder, Percutaneous Endoscopic Approach (ICD-10-PCS; principal; 2018-03-20 11:45)
DX: K81.0 Acute cholecystitis (principal); I12.0 Hypertensive chronic kidney disease with stage 5 chronic kidney disease or end stage renal disease; N18.6 End stage renal disease; I47.1 Supraventricular tachycardia; B96.1 Klebsiella pneumoniae [K. pneumoniae] as the cause of diseases classified elsewhere; E86.9 Volume depletion, unspecified; E21.3 Hyperparathyroidism, unspecified; E78.5 Hyperlipidemia, unspecified; M81.0 Age-related osteoporosis without current pathological fracture; K21.9 Gastro-esophageal reflux disease without esophagitis; M10.9 Gout, unspecified; I25.10 Atherosclerotic heart disease of native coronary artery without angina pectoris; Z95.5 Presence of coronary angioplasty implant and graft; Z85.46 Personal history of malignant neoplasm of prostate
CPT/HCPCS: 96365; A9537; J0153; J0885; J1100; J1170; J2185; J2250; J2270; J2370; J2405; J2704; J2710; J2765; J3010

== ENCOUNTER → 2018-03-28 | Outpatient (CLI) | payer OTHER ==
[~2018-03-28] MED LIST changes: +IOHEXOL 350mgI/ML (OMNIPAQUE) 150 ML BTL IV ONE; -IOPAMIDOL (ISOVUE-370) 150 ML BTL IV ONE
== END ==
LOC: FIMAGING 13:57
PROVIDERS: ATTEND Internal Medicine
DX: Z03.89 Encounter for observation for other suspected diseases and conditions ruled out (principal)
CPT/HCPCS: 71275; Q9967

== ENCOUNTER 2018-06-05 21:28 | Observation (INO) | payer OTHER ==
[2018-06-05] MEDS ORDERED: NS 1,000 ML IV ONE (21:38)
[2018-06-05] MEDS ORDERED: ASPIRIN 81 MG CHEWABLE TAB PO ONE (21:42)
[2018-06-05] MEDS ORDERED: ASPIRIN 81 MG CHEWABLE TAB ONE (21:45)
--- NOTE | 2018-06-05 21:47 | EDPHY ---
H & P Stated Complaint: chest tightness palpitations since dialysis around 1430 Time Seen by Provider: 06/05/18 21:44 HPI/ROS: HPI CHIEF COMPLAINT: Chest pain HISTORY OF PRESENT ILLNESS: This patient is 83-year-old male, history of coronary artery disease with multiple stents he reports 3 stents that approximately 89 years old, he has a history of hypertension, end-stage renal disease on hemodialysis Saturday. His last episode dialysis was today. He completed this. During dialysis he got chest discomfort. Describes substernal dull pressure sensation. Nonradiating. He had this again tonight this what prompted come to the emergency room. Currently does not have any chest pain. Past Medical History: End-stage renal disease on hemodialysis Saturday, hypertension, coronary artery disease with 3 stents Past Surgical History: Cardiac stents x3, left arm AV fistula Social History: Denies drugs alcohol tobacco. Family History: Noncontributory ROS REVIEW OF SYSTEMS: 10 Systems were reviewed and negative with the exception of the elements mentioned in the history of present illness. Exam Constitutional triage nursing summary reviewed, vital signs reviewed, awake/ alert. Eyes normal conjunctivae and sclera, EOMI, PERRLA. HENT normal inspection, atraumatic, moist mucus membranes, no epistaxis, neck supple/ no meningismus, no raccoon eyes. Respiratory clear to auscultation bilaterally, normal breath sounds, no respiratory distress, no wheezing. Cardiovascular rate normal, regular rhythm, no murmur, no edema, distal pulses normal. Gastrointestinal soft, non-tender, no rebound, no guarding, normal bowel sounds, no distension, no pulsatile mass. Genitourinary no CVA tenderness. Musculoskeletal no midline vertebral tenderness, full range of motion, no calf swelling, no tenderness of extremities, no meningismus, good pulses, neurovascularly intact. Skin pink, warm, & dry, no rash, skin atraumatic. Neurologic awake, alert and oriented x 3, AAOx3, moves all 4 extremities equally, motor intact, sensory intact, CN II-XII intact, normal cerebellar, normal vision, normal speech. Psychiatric normal mood/affect. Heme/Lymph/Immune no lymphadenopathy. Differential Diagnosis: Differential diagnosis includes but is not limited to: ACS, atypical chest pain, pneumothorax, pneumonia, pulmonary embolism, aortic dissection, congestive heart failure, tumor, musculoskeletal pain, esophageal pain, GERD, peptic ulcer disease, pancreatitis Medical Decision Making: Plan for this patient IV establishment, ekg monitor tech, EKG, troponin, basic blood work, chest x-ray, full-dose aspirin, rule out acute coronary syndrome Re-evaluation: EKG interpretation by me on record in [facility] system. Impression time of [id number], sinus rhythm rate of 83, no signs of acute ischemia no signs of ST elevation. Long discussion with the patient at 10:54 p.m., he agrees for hospital admission for further cardiac evaluation. The patient's cardiovascular risk factors include coronary artery disease with underlying stents, end-stage renal disease on dialysis, his age, hypertension. Plan for admission for further cardiac evaluation. I spoke with the hospitalist service Dr. De Leon agrees to admit. Source: Patient - Personal History Current Tetanus/Diphtheria Vaccine: Yes Current Tetanus Diphtheria and Acellular Pertussis (TDAP): Yes - Medical/Surgical History Hx Asthma: No Hx Chronic Respiratory Disease: No Hx Diabetes: No Hx Cardiac Disease: Yes Hx Renal Disease: Yes Hx Cirrhosis: No Hx Alcoholism: No Hx HIV/AIDS: No Hx Splenectomy or Spleen Trauma: No Other PMH: HTN, 2 CARDIAC STENTS FOR BLOCKAGES, ESRD on HD, ELEVATED CHOLESTEROL , PROSTATE CA 2012, parathyroid surgery, GERD, A fib - Social History Smoking Status: Never smoked Constitutional: Initial Vital Signs Temperature (C) 37.0 C 06/05/18 21:31 Heart Rate 86 06/05/18 21:31 Respiratory Rate 18 06/05/18 21:31 Blood Pressure 159/79 H 06/05/18 21:31 O2 Sat (%) 98 06/05/18 21:31 O2 Delivery Mode Room Air Allergies/Adverse Reactions: adhesive Allergy (Mild, Verified 06/05/18 21:30) Rash Home Medications: Medication Instructions Recorded Allopurinol [Allopurinol 100 MG 100 mg PO DAILY 09/21/15 (*)] Aspirin [Aspirin 81mg (*)] 81 mg PO HS 09/21/15 Atorvastatin Calcium [Lipitor 20 20 mg PO HS 09/21/15 mg (*)] Herbals/Supplements -Info Only 1 ea PO DAILY 09/21/15 Multivitamins [Multivitamin (*)] 1 each PO HS 09/21/15 Niacin ER [Niaspan 500 mg (*)] 500 mg PO HS 09/21/15 Paricalcitol [Zemplar] 4 mcg PO MOTH@21 09/21/15 Ferrous Sulfate [Ferrous Sulf 325 325 mg PO DAILY 11/29/17 MG (*)] Sodium Bicarbonate [Na Bicarb] 1,300 mg PO DAILY 11/29/17 Tamsulosin HCl [Flomax 0.4 MG (*)] 0.4 mg PO BID 11/29/17 Ascorbic Acid [Vitamin C 500 mg 500 mg PO HS 03/14/18 (*)] Calcium Carbonate [Tums 500MG (*)] 1,000 mg PO DAILY18 03/14/18 Calcium Carbonate [Tums 500MG (*)] 500 mg PO BID@,03/14/18 Cholecalciferol Vit D3 [Vitamin D3 1,000 units PO HS 03/14/18 (*)] Fluticasone Nasal [Flonase Nasal 1 sprays EACHNARE BID 03/14/18 [place]] Ondansetron Odt [Zofran Odt 4 mg 4 mg PO BID PRN 03/14/18 (*)] Sodium Bicarbonate [Na Bicarb] 1,950 mg PO HS 03/14/18 Vitamin B Complex [Vitamin B 1 each PO HS 03/14/18 Complex (OTC)] Furosemide [Lasix 20 MG (*)] 40 mg PO DAILY16 03/18/18 Levothyroxine [Synthroid 75 mcg 75 mcg PO DAILY06 06/06/18 (*)] Metoprolol Tartrate 25 mg PO BID 06/06/18 Tobramycin/Dexamethasone [Tobradex 1 charli OP DAILY PRN 06/06/18 Eye Ointment] Medical Decision Making - Data Points Laboratory Results: Laboratory Results 06/05/18 21:40 06/05/18 21:40 Medications Given: Discontinued Medications Acetaminophen (Tylenol) 650 mg PO Q4HRS PRN PRN Reason: Pain, Mild/Fever, Can Take PO Stop: 12/02/18 23:10 Last Admin: 06/06/18 10:04 Dose: 650 mg Allopurinol (Allopurinol) 100 mg PO DAILY MIRIAM Stop: 12/03/18 08:59 Last Admin: 06/06/18 10:01 Dose: 100 mg Aspirin (Aspirin) 324 mg PO EDNOW ONE Stop: 06/05/18 21:43 Last Admin: 06/05/18 21:47 Dose: 324 mg Calcium Carbonate (Tums) 500 mg PO BID@09,12 MIRIAM Stop: 12/03/18 11:59 Last Admin: 06/06/18 11:57 Dose: 500 mg Levothyroxine Sodium (Synthroid) 75 mcg PO DAILY@0800 MIRIAM Stop: 12/03/18 07:59 Last Admin: 06/06/18 10:01 Dose: 75 mcg Lorazepam (Ativan Injection) 0.5 mg IVP EDNOW ONE Stop: 06/05/18 23:02 Last Admin: 06/06/18 07:33 Dose: Not Given Metoprolol Tartrate (Lopressor) 25 mg PO BID MIRIAM Stop: 12/03/18 10:29 Last Admin: 06/06/18 10:36 Dose: 25 mg Pantoprazole Sodium (Protonix) 40 mg PO DAILY MIRIAM Stop: 12/03/18 10:29 Last Admin: 06/06/18 10:36 Dose: 40 mg Sodium Bicarbonate (Na Bicarb) 1,300 mg PO DAILY MIRIAM Stop: 12/03/18 10:29 Last Admin: 06/06/18 10:36 Dose: 1,300 mg Tamsulosin HCl (Flomax) 0.4 mg PO BID MIRIAM Stop: 12/03/18 08:59 Last Admin: 06/06/18 10:01 Dose: 0.4 mg Point of Care Test Results: Chemistry 06/05/18 21:41 POC Troponin I 0.01 ng/mL ng/mL (0.00-0.08) Departure - Departure Disposition: [facility] Acute Clinical Impression: Chest pain Qualifiers: Chest pain type: unspecified Qualified Code(s): R07.9 - Chest pain, unspecified Condition: Good
[2018-06-05 21:50] LABS: PLATELET COUNT 154 10^3/uL (150-400)
[2018-06-05 21:59] LABS: INR 0.94 (0.83-1.16); PROTIME(PATIENT) 12.2 SEC (12.0-15.0)
[2018-06-05] MEDS ORDERED: LORazepam 2 MG/ML INJ IVP ONE (23:01)
[2018-06-05] MEDS ORDERED: ACETAMINOPHEN 325 MG TAB PO PRN (23:11)
[2018-06-05] MEDS ORDERED: ONDANSETRON 4 MG/2 ML VIAL IVP PRN (23:11)
[2018-06-05] MEDS ORDERED: ONDANSETRON DISINTEGRATING 4 MG TAB PO PRN (23:11)
[2018-06-05] MEDS ORDERED: NITROGLYCERIN 0.4 MG BTL SL PRN (23:15)
--- NOTE | 2018-06-06 02:32 | PDGENHP ---
History and Physical - Chief Complaint chest pressure - History of Present Illness Source - Patient provides history and appears reliable. EMR reviewed and case discussed with ED provider. HPI - This is a very pleasant 83 yo M with pmhx significant for ESRD on HD Saturday, HTN, history of prostate cancer status post proton therapy, HLD, CAD with history of stent placement remotely, paroxysmal AFib, hyperparathyroidism status post partial therapy parathyroidectomy who presents to the ED today with complaints of persistent central chest pressure starting earlier this afternoon. Patient denies any pain just complaint of short bursts of pressure sensation. pressures occurs for approximately 10 second intervals without associated nausea/vomiting, diaphoresis, neck/arm/jaw pain. Patient notes these pains are similar to those experienced during dialysis and have been on going for the past 1-2 weeks. Patient has sx earlier and settings were adjusted improving patient sx. He reports BPs were slightly elevated today and typically WNL 120-140s and can drop during HD as low as SBP 90s. Patient reports he takes a half tab lopressor prior to HD and a full one after and has not had significant issues since. Patient denies any acute SOB but has underlying MARTINEZ. Patient notes he underwent a stress testing 4 years ago. He has a history of coronary stent placement 2010. Patient is followed by Dr. Sue. History Information - Allergies/Home Medication List Allergies/Adverse Reactions: adhesive Allergy (Mild, Verified 06/05/18 21:30) Rash Home Medications: Allopurinol [Allopurinol 100 MG (*)] 100 mg PO DAILY 09/21/15 [Last Taken ] Aspirin [Aspirin 81mg (*)] 81 mg PO HS 09/21/15 [Last Taken 03/13/18] Atorvastatin Calcium [Lipitor 20 mg (*)] 20 mg PO HS 09/21/15 [Last Taken ] Herbals/Supplements -Info Only 1 ea PO DAILY 09/21/15 [Last Taken 11/29/17] Multivitamins [Multivitamin (*)] 1 each PO HS 09/21/15 [Last Taken 03/17/18] Niacin ER [Niaspan 500 mg (*)] 500 mg PO HS 09/21/15 [Last Taken 03/13/18] Paricalcitol [Zemplar] 4 mcg PO MOTH@21 09/21/15 [Last Taken 03/13/18] Ferrous Sulfate [Ferrous Sulf 325 MG (*)] 325 mg PO DAILY 11/29/17 [Last Taken 03/18/18] Sodium Bicarbonate [Na Bicarb] 1,300 mg PO DAILY 11/29/17 [Last Taken 03/18/18] Tamsulosin HCl [Flomax 0.4 MG (*)] 0.4 mg PO BID 11/29/17 [Last Taken 03/18/18 09:00] Ascorbic Acid [Vitamin C 500 mg (*)] 500 mg PO HS 03/14/18 [Last Taken 03/17/18] Calcium Carbonate [Tums 500MG (*)] 1,000 mg PO 03/14/18 [Last Taken ] Calcium Carbonate [Tums 500MG (*)] 500 mg PO DAILY@03/14/18 [Last Taken 03/13] Cholecalciferol Vit D3 [Vitamin D3 (*)] 1,000 units PO HS 03/14/18 [Last Taken 03/17/18] Fluticasone Nasal [Flonase Nasal [place]] 1 sprays EACHNARE BID 03/14/18 [Last Taken 03/13/18 21:00] Ondansetron Odt [Zofran Odt 4 mg (*)] 4 mg PO BID PRN 03/14/18 [Last Taken 03/14] Sodium Bicarbonate [Na Bicarb] 1,950 mg PO HS 03/14/18 [Last Taken 03/17/18] Vitamin B Complex [Vitamin B Complex (OTC)] 1 each PO HS 03/14/18 [Last Taken ] Furosemide [Lasix 20 MG (*)] 40 mg PO DAILY16 03/18/18 [Last Taken Unknown] I have personally reviewed and updated: family history, medical history, social history, surgical history Past Medical History: See HPI list - Past Medical History Additional medical history: Paroxysmal atrial fibrillation not on anticoagulation. ESRD on HD TuThSat, HTN, prostate CA, HLD, CAD s/p stenting, hx upper GIB 2/2 polyp. ulnar neuropathy, hemmorhoids, osteoporosis, gerd - Surgical History Additional surgical history: cholecystectomy 02/2018. T/A. partial parathyroidectomy. L AV fistula 11/2017 - Family History Positive for: diabetes type II, non-pertinent Additional family history: Father from bacteremia after complications from hip surgery - Social History Smoking Status: Never smoked Alcohol Use: None Drug Use: None Additional social history: Patient and lives with . 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 COR - FULL. Review of Systems Review of Systems: ROS: 10pt was reviewed & negative except for what was stated in HPI & below Physical Exam Physical Exam: Selected Entries 06/05/18 21:31 Blood Pressure Automatic Method Heart Rate 86 Respiratory 18 Rate O2 Sat (%) 98 Temperature (C) 37.0 C Blood Pressure 159/79 H Mean Arterial 105 H Pressure (MAP) O2 Delivery Room Air Mode Temperature Oral Source Temp Pulse Resp BP Pulse Ox 36.6 C 83 17 148/79 H 93 06/06/18 00:06 06/06/18 00:06 06/06/18 00:06 06/06/18 00:06 06/06/18 00:06 Constitutional: no apparent distress, appears nourished, other (NAD. patient is sitting up on gurney. at bedside. appears to be in good spirits. ), No chronically ill appearing Eyes: PERRL, anicteric sclera, EOMI, No scleral injection Ears, Nose, Mouth, Throat: moist mucous membranes, other (no nasal discharge. ) , No poor dentition Cardiovascular: regular rate and rhythym, no murmur, rub, or gallop, pulses symmetric bilaterally, No edema Peripheral Pulses: 1+: dorsalis-pedis (R), dorsalis-pedis (L) Respiratory: no respiratory distress, no rales or rhonchi, clear to auscultation , reduced air movement (slightly diminished bibasilar. ), No expiratory wheeze, No inspiratory crackles Gastrointestinal: normoactive bowel sounds, soft, non-tender abdomen, no palpable masses, other (obese abdomen), No guarding Genitourinary: no bladder tenderness, No sandoval in urethra Skin: normal color, mottled, no rashes or abrasions Musculoskeletal: full muscle strength, no muscle tenderness, normal joint ROM, other (patient sits up independently. ), No generalized weakness Neurologic: AAOx3, sensation intact bilaterally, No facial droop Psychiatric: interacting appropriately, not anxious, not encephalopathic, thought process linear, No poor insight, No poor judgement, No poor memory Lab Data & Imaging Review 06/05/18 21:40 06/05/18 21:40 WBC 5.48 10^3/uL (3.80-9.50) 06/05/18 21:40 RBC 3.79 10^6/uL (4.40-6.38) L 06/05/18 21:40 Hgb 12.2 g/dL (13.7-17.5) L 06/05/18 21:40 Hct 35.6 % (40.0-51.0) L 06/05/18 21:40 MCV 93.9 fL (81.5-99.8) 06/05/18 21:40 MCH 32.2 pg (27.9-34.1) 06/05/18 21:40 MCHC 34.3 g/dL (32.4-36.7) 06/05/18 21:40 RDW 14.6 % (11.5-15.2) 06/05/18 21:40 Plt Count 154 10^3/uL (150-400) 06/05/18 21:40 MPV 8.8 fL (8.7-11.7) 06/05/18 21:40 Neut % (Auto) 53.7 % (39.3-74.2) 06/05/18 21:40 Lymph % (Auto) 27.0 % (15.0-45.0) 06/05/18 21:40 Yates % (Auto) 12.6 % (4.5-13.0) 06/05/18 21:40 Eos % (Auto) 5.5 % (0.6-7.6) 06/05/18 21:40 Baso % (Auto) 0.5 % (0.3-1.7) 06/05/18 21:40 Nucleat RBC Rel Count 0.0 % (0.0-0.2) 06/05/18 21:40 Absolute Neuts (auto) 2.94 10^3/uL (1.70-6.50) 06/05/18 21:40 Absolute Lymphs (auto) 1.48 10^3/uL (1.00-3.00) 06/05/18 21:40 Absolute Monos (auto) 0.69 10^3/uL (0.30-0.80) 06/05/18 21:40 Absolute Eos (auto) 0.30 10^3/uL (0.03-0.40) 06/05/18 21:40 Absolute Basos (auto) 0.03 10^3/uL (0.02-0.10) 06/05/18 21:40 Absolute Nucleated RBC 0.00 10^3/uL (0-0.01) 06/05/18 21:40 Immature Gran % 0.7 % (0.0-1.1) 06/05/18 21:40 Immature Gran # 0.04 10^3/uL (0.00-0.10) 06/05/18 21:40 PT 12.2 SEC (12.0-15.0) 06/05/18 21:40 INR 0.94 (0.83-1.16) 06/05/18 21:40 APTT 28.6 SEC (23.0-38.0) 06/05/18 21:40 Sodium 133 mEq/L (135-145) L 06/05/18 21:40 Potassium 4.6 mEq/L (3.5-5.2) 06/05/18 21:40 Chloride 98 mEq/L (97-110) 06/05/18 21:40 Carbon Dioxide 25 mEq/l (22-31) 06/05/18 21:40 Anion Gap 10 mEq/L (6-14) 06/05/18 21:40 BUN 19 mg/dL (7-23) 06/05/18 21:40 Creatinine 3.5 mg/dL (0.7-1.3) H 06/05/18 21:40 Estimated GFR 17 06/05/18 21:40 Glucose 92 mg/dL (70-100) 06/05/18 21:40 Calcium 8.9 mg/dL (8.5-10.4) 06/05/18 21:40 Magnesium 1.9 mg/dL (1.6-2.3) 06/05/18 21:40 Total Bilirubin 0.5 mg/dL (0.1-1.4) 06/05/18 21:40 Conjugated Bilirubin 0.4 mg/dL (0.0-0.5) 06/05/18 21:40 Unconjugated Bilirubin 0.1 mg/dL (0.0-1.1) 06/05/18 21:40 AST 34 IU/L (17-59) 06/05/18 21:40 ALT 34 IU/L (21-72) 06/05/18 21:40 Alkaline Phosphatase 62 IU/L (38-126) 06/05/18 21:40 POC Troponin I 0.01 ng/mL (0.00-0.08) 06/05/18 21:41 NT-Pro-B Natriuret Pep 503 pg/mL (0-450) H 06/05/18 21:40 Total Protein 6.3 g/dL (6.3-8.2) 06/05/18 21:40 Albumin 4.0 g/dL (3.5-5.0) 06/05/18 21:40 Imaging Review: Portable Chest, 21:48 History: Chest pain Comparison: March 18, 2018 Findings: Inspiratory phase is improved. There is a chronic thin scar at the lateral left lung base. There is no focal infiltrate or consolidation. There is no pleural effusion or pneumothorax. Heart size and pulmonary vascularity are stable and normal. EKG leads overlie the chest. Impression: Nothing acute identified. Dictated By: Obinna Ríos MD Chest X-Ray results: no infiltrate Visualized and Interpreted EKG results: Yes EKG additional interpertation: NSR 80s. (ekg listing atrial fibrillation however p waves are present albeit with prolonged pr interval). no acute ST changes. LAD. QTc 450. Assessment & Plan Assessment: This is a very pleasant 83 yo M with pmhx significant for ESRD on HD Saturday, HTN, history of prostate cancer status post proton therapy, HLD, CAD with history of stent placement remotely, paroxysmal AFib, hyperparathyroidism status post partial therapy parathyroidectomy who presents to the ED today with complaints of persistent central chest pressure starting earlier this afternoon. # chest pressure - atypical chest discomfort. Patient notes that it has been occurring primarily during dialysis particularly when he has larger volumes removed up to 1500 mL. Patient also reports that he has fluctuations in blood pressures during these episodes. BP currently is stable. Monitor closely and trend troponins. No acute EKG changes are noted. Patient ports he has not had a stress test in approximately 4 years. Cardiology consult in the morning to assist with additional evaluation. He is followed by Dr. Sue. # CAD with history of stent - aspirin, statin, beta-veronica #benign essential HTN - blood pressure is mildly elevated. Hold off on patient' s metoprolol in the morning pending Cardiology recommendations. Patient reports that he typically will take half tab of metoprolol before dialysis and a full tab following dependent on his blood pressures # hyponatremia - mild. Status post dialysis earlier in the day. Will plan to repeat BMP in the morning. Patient did not receive any IV fluids. Chronic medical issues # paroxysmal atrial fibrillation - patient currently in sinus arrhythmia. EKG noting atrial fibrillation however P-waves are present with a prolonged AK interval. # ESRD HD on TuThSat - patient completed dialysis earlier today. He reports they removed 800 mL. # HLD - continue statin # anemia - no evidence of active bleeding. 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 Patient reports that he receives iron infusions p.r.n.. # BPH - Flomax FEN - renal diet. SLIV. Electrolyte monitoring replacement p.r.n. PPX - SCDs. Holding anticoagulation given history of GI bleeding and current anemia. Additionally anticipate short hospital stay. COR - FULL Dispo - patient admitted observation status on PCU for close cardiac monitoring pending additional evaluation as noted above.
--- NOTE | 2018-06-06 07:46 | CPEKG ---
Test Reason : OPEN Blood Pressure : / mmHG Vent. Rate : 083 BPM Atrial Rate : 084 BPM P-R Int : 253 ms QRS Dur : 098 ms QT Int : 383 ms P-R-T Axes : 045 -16 055 degrees QTc Int : 450 ms Atrial fibrillation Borderline left axis deviation Confirmed by Brian Cobb ([id number]) on 06/06/2018 7:45:56 AM Referred By: Brian Cobb Confirmed By:Brian Cobb
[2018-06-06 07:53] LABS: PLATELET COUNT 145 10^3/uL (150-400)
[2018-06-06] MEDS ORDERED: LEVOTHYROXINE 75 MCG TAB PO SCH (08:00)
[2018-06-06] MEDS ORDERED: ALLOPURINOL 100 MG TAB PO SCH (09:00)
[2018-06-06] MEDS ORDERED: TAMSULOSIN HCL 0.4 MG CAP PO SCH (09:00)
[2018-06-06] MEDS ORDERED: TOBRAMYCIN/DEXAMETH 3.5 GM OPHT.OINT OP PRN (10:18)
[2018-06-06] MEDS ORDERED: PANTOPRAZOLE SODIUM 40 MG TAB PO SCH (10:30)
[2018-06-06] MEDS ORDERED: SODIUM BICARBONATE 650 MG TAB PO SCH ×2 (10:30→21:00)
[2018-06-06] MEDS ORDERED: METOPROLOL TARTRATE 25 MG TAB PO SCH (10:30)
[2018-06-06 11:35] VITALS: BP 114/62
--- NOTE | 2018-06-06 11:58 | ASMTCMCOM ---
CM Note CM Note Notes: 06/06/2018 Case Management Note Pt admitted for chest pain. Lexascan planned for today. Met w/pt to discuss d/c needs. YADIEL signed. Pt has dialysis Joe James, Sat at [facility] [place] on [address] Pt lives independently with his Nora in his own home. Pt does his own lawncare and snow removal, is able to drive and reports no difficulties preparing meals. Pt has several children in the area who are able to help when needed. Pt PCP is Dr. Parra. There are no therapy evals ordered today. There are no case management d/c needs identified. Case Management d/c poc: independent with follow up as directed. Case Management available if needs change. Date Signed: 06/06/2018 11:57 AM Electronically Signed By:Wendy Paul RN
[2018-06-06] MEDS ORDERED: CALCIUM CARBONATE 500 MG CHEWABLE TAB PO SCH ×2 (12:00→18:00)
[2018-06-06] MEDS ORDERED: REGADENOSON 0.4 MG/5 ML SYR IVP ONE (13:03)
[2018-06-06] MEDS ORDERED: FUROSEMIDE 20 MG TAB PO SCH (16:00)
--- NOTE | 2018-06-06 16:23 | PDDCSUM ---
Discharge Summary Discharge Summary: Date of Admission: 06/05/2018 Date of Discharge: 06/06/2018 Consults: N/A Procedures: MPS Followup: PCP, Cardiology Hospital Course Problem List: This is a very pleasant 83 yo M with pmhx significant for ESRD on HD Saturday, HTN, history of prostate cancer status post proton therapy, HLD, CAD with history of stent placement remotely, paroxysmal AFib, hyperparathyroidism status post partial therapy parathyroidectomy who presents to the ED today with complaints of persistent central chest pressure. # chest pressure - atypical chest discomfort. Patient notes that it has been occurring primarily during dialysis particularly when he has larger volumes removed up to 1500 mL. Patient also reports that he has fluctuations in blood pressures during these episodes. BP currently is stable. Troponins trended which were negative . No acute EKG changes are noted. MPS performed with no signs of ischemia. # CAD with history of stent - aspirin, statin, beta-veronica #benign essential HTN - blood pressure is mildly elevated. Hold off on patient' s metoprolol in the morning pending Cardiology recommendations. Patient reports that he typically will take half tab of metoprolol before dialysis and a full tab following dependent on his blood pressures # hyponatremia - mild. Status post dialysis earlier in the day. Patient did not receive any IV fluids. Chronic medical issues # paroxysmal atrial fibrillation - patient currently in sinus arrhythmia. EKG noting atrial fibrillation however P-waves are present with a prolonged NH interval. # ESRD HD on TuThSat - patient completed dialysis earlier today. He reports they removed 800 mL. # HLD - continue statin # anemia - no evidence of active bleeding. 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 Patient reports that he receives iron infusions p.r.n.. # BPH - Flomax Time spent on discharge was >35 minutes with >50% fo time spent on patient education and counseling.
--- NOTE | 2018-06-06 16:31 | ASDISCHSUM ---
Discharge Information Plan Status:Home with No Needs Medically Cleared to Leave:06/06/2018 Discharge Date:06/06/2018 02:45 PM CM D/C Disposition:Home, Routine, Self-Care ADT D/C Disposition:Home, Routine, Self-Care Projected Discharge Date:06/06/2018 02:45 PM Transportation at D/C:Family Discharge Delay Reason: Follow-Up Date:06/06/2018 02:45 PM Discharge Slot: Final Diagnosis: Placement Information Patient Contact Information Contact Name:YAZMIN Relationship: [address] City:[place] Alternate Phone: [facility]/Zip Code:[place] [address] Email: Financial Information Financial Class:Medicare Primary Plan Desc:MEDICARE OUTPATIENT Primary Plan Number:[id number] Secondary Plan Desc:[facility] Secondary Plan Number:[id number] Assessment Information LACE LACE Length of stay for Answers: Less than 1 day current admission Acuity / Level of Answers: No Care: Did the patient have an inpatient admission? Comorbidities - select Answers: Any tumor (including all that apply lymphoma or leukemia) Coronary Artery Disease Moderate or severe liver or renal disease Other Notes: HTN, HLD, hyperparathyr oid ism # of Emergency department Answers: 3-4 visits in the last 6 months Score: 12 Date Signed: 06/06/2018 04:29 PM Electronically Signed By:Wendy Paul RN [facility] CM Progress Note CM Note CM Note Notes: 06/06/2018 Case Management Note Pt admitted for chest pain. Nick planned for today. Met w/pt to discuss d/c needs. YADIEL signed. Pt has dialysis Joe James, Sat at [facility] in [place] on [address] Pt lives independently with his Nora in his own home. Pt does his own lawncare and snow removal, is able to drive and reports no difficulties preparing meals. Pt has several children in the area who are able to help when needed. Pt PCP is Dr. Parra. There are no therapy evals ordered today. There are no case management d/c needs identified. Case Management d/c poc: independent with follow up as directed. Case Management available if needs change. Date Signed: 06/06/2018 11:57 AM Electronically Signed By:Wendy Paul RN Intervention Information Intervention Type:*COTTO-Signed Date of Service:06/06/2018 11:53 AM Patient Type:Observation Staff Member:JUNAID Paul, Wendy Hours: Discipline: Severity: Comment:
[2018-06-06] MEDS ORDERED: ATORVASTATIN CALCIUM 20 MG TAB PO SCH (21:00)
[2018-06-06] MEDS ORDERED: ASPIRIN 81 MG CHEWABLE TAB PO SCH (21:00)
[2018-06-07] MEDS ORDERED: FERROUS SULFATE 325 MG TAB PO SCH (09:00)
[2018-06-09] MEDS ORDERED: PARICALCITOL 4 MCG PO SCH (21:00)
== END 2018-06-06 14:45 | disposition home or self-care (01) ==
LOC: F2W 23:59
PROVIDERS: ADMIT Family Medicine; ATTEND Family Medicine
DX: R07.89 Other chest pain (principal); I48.0 Paroxysmal atrial fibrillation; I12.0 Hypertensive chronic kidney disease with stage 5 chronic kidney disease or end stage renal disease; I25.10 Atherosclerotic heart disease of native coronary artery without angina pectoris; E87.1 Hypo-osmolality and hyponatremia; N18.6 End stage renal disease; Z99.2 Dependence on renal dialysis; E78.5 Hyperlipidemia, unspecified; E21.3 Hyperparathyroidism, unspecified; D63.1 Anemia in chronic kidney disease; N40.0 Benign prostatic hyperplasia without lower urinary tract symptoms; K21.9 Gastro-esophageal reflux disease without esophagitis; Z85.46 Personal history of malignant neoplasm of prostate; Z95.5 Presence of coronary angioplasty implant and graft
CPT/HCPCS: 71045; 78452; 93005; 93017; A9500; G0378; J2785; 84484-ER